=== PATIENT | female | born 1980 | race American Indian/Alaskan Native ===

== ENCOUNTER 2020-12-19 03:46 | Inpatient (IN) | payer OTHER ==
[2020-12-19 05:17] LABS: Basophils % (Auto) 0.3 % (0.0-1.8); Eosinophils # (Auto) 0.2 K/mm3 (0.0-0.4); Hematocrit 41.8 % (30.3-42.9); Lymphocytes # (Auto) 2.2 K/mm3 (1.2-5.4); Lymphocytes % (Auto) 17.1 % (13.4-35.0); Mean Corpuscular HGB Conc 33 % (30-34); Mean Corpuscular Volume 90 fl (79-97); Monocytes # (Auto) 1.2 K/mm3 (0.0-0.8); Monocytes % (Auto) 9.2 % (0.0-7.3); Platelet Count 275 K/mm3 (140-440); Red Blood Count 4.67 M/mm3 (3.65-5.03); Red Cell Distribution Width 13.9 % (13.2-15.2)
[2020-12-19 05:34] LABS: Alanine Aminotransferase 43 units/L (7-56); Albumin 3.9 g/dL (3.9-5); Blood Urea Nitrogen 10 mg/dL (7-17); Calcium 8.9 mg/dL (8.4-10.2); Hemolysis Index 4
[2020-12-19 05:43] LABS: BUN/Creatinine Ratio 17
[2020-12-19 05:46] LABS: Chol/HDL Ratio 3.86 %; HDL Cholesterol 38 mg/dL (40-59); LDL Cholesterol,Direct 98 mg/dL (50-130)
--- NOTE | 2020-12-19 05:55 | XRay Report ---
CHEST 1 VIEW 5:48 AM INDICATION / CLINICAL INFORMATION: Difficulty breathing. COMPARISON: None available. FINDINGS: SUPPORT DEVICES: None. HEART / MEDIASTINUM: The heart size and pulmonary vasculature are normal. LUNGS / PLEURA: No significant pulmonary or pleural abnormality. No pneumothorax. ADDITIONAL FINDINGS: No significant additional findings. IMPRESSION: No acute findings. Signer Name: Oumar Martinez MD Signed: 12/19/2020 5:51 AM Workstation Name: [id number]
[2020-12-19 08:11] LABS: HCG Qualitative,Urine Negative (Negative)
[2020-12-19 08:26] LABS: Bacteria,Urine 1+ /HPF (Negative); Bilirubin,Urine NEG (Negative); Blood,Urine NEG (Negative); Color,Urine Yellow (Yellow); Mucus,Urine FEW /HPF; Urobilinogen,Urine < 2.0 mg/dL (<2.0)
[2020-12-19] MEDS ORDERED: ONDANSETRON 4 MG/2 ML INJ IV ONE (08:51)
[2020-12-19] MEDS ORDERED: SODIUM CHLORIDE 0.9% 250ML 250 ML IV ONE (08:51)
[2020-12-19] MEDS ORDERED: HEPARIN 10,000 UNIT/1 ML VIAL IV STA (08:52)
--- NOTE | 2020-12-19 08:53 | Emergency Department Report ---
ED General Adult HPI - General Chief complaint: Dyspnea/Respdistress Stated complaint: SOB/CHEST PAIN/HEART RACING PUI?: No Time Seen by Provider: 12/19/20 06:51 Source: patient, RN notes reviewed Mode of arrival: Ambulatory Limitations: Physical Limitation - History of Present Illness Initial comments: The patient was evaluated in the emergency department for symptoms described in the history of present illness. He/she was evaluated in the context of the global COVID-19 pandemic, which necessitated consideration that the patient might be at risk for infection with the virus that causes COVID-19. Institutional protocols and algorithms that pertain to the evaluation of patients at risk for COVID-19 are in a state of rapid change based on information released by regulatory bodies including the CDC and federal and state organizations. These policies and algorithms were followed during the patient's care in the emergency department. Please note that these policies, procedures and recommendations changed on a rapid basis. The patient is a 40-year-old female. She is not known to myself previously. She states that she is not . She appears to have a history of obesity, panic attacks, pulmonary embolism, IVC filter. Her pulmonary embolism was diagnosed approximately 10 years ago, associate with orthopedic surgery. She does not currently have systemic anticoagulation. Her primary care doctor is in [place]. She presents to the ER today with a complaint of basically painless shortness of breath. This has been going on for a few days. She denies headache, neck pain, chest pain, abdominal pain. She has lower extremity swelling. She states that she is not , and denies hematemesis, bright red blood per rectum. Denies loss of taste and smell. -: Gradual, days(s) Location: left, right, lower extremity Consistency: constant Improves with: rest Worsens with: movement - Related Data Home Medications Medication Instructions Recorded Confirmed Last Taken propranoloL [Inderal] 40 mg PO BID 12/19/20 12/19/20 Unknown Allergies Allergy/AdvReac Type Severity Reaction Status Date / Time sulfamethoxazole Allergy Itching Verified 12/19/20 04:19 [From Bactrim] trimethoprim [From Bactrim] Allergy Itching Verified 12/19/20 04:19 ED Review of Systems ROS: Stated complaint: SOB/CHEST PAIN/HEART RACING Other details as noted in HPI Constitutional: malaise, weakness. denies: fever Eyes: denies: eye discharge ENT: denies: congestion Respiratory: shortness of breath Cardiovascular: dyspnea on exertion, orthopnea. denies: chest pain Gastrointestinal: denies: hematemesis, melena, hematochezia Musculoskeletal: other (Lower extremity swelling) Neurological: weakness Psychiatric: anxiety Hematological/Lymphatic: denies: easy bleeding ED Past Medical Hx - Past Medical History Previous Medical History?: Yes Hx Headaches / Migraines: Yes Hx Psychiatric Treatment: Yes (Panic Attacks.) Additional medical history: Pulmonary Embolism - Surgical History Past Surgical History?: Yes Additional Surgical History: Removal of [place] Filter. - Social History Smoking Status: Never Smoker - Medications Home Medications: Home Medications Medication Instructions Recorded Confirmed Last Taken Type propranoloL [Inderal] 40 mg PO BID 12/19/20 12/19/20 Unknown History ED Physical Exam - General Limitations: No Limitations General appearance: alert, anxious, obese - Head Head exam: Present: atraumatic, normocephalic - Eye Eye exam: Present: normal appearance, EOMI. Absent: nystagmus - ENT ENT exam: Present: normal exam, normal orophraynx, mucous membranes moist, normal external ear exam - Neck Neck exam: Present: normal inspection, full ROM. Absent: tenderness, meningismus - Respiratory Respiratory exam: Present: decreased breath sounds. Absent: respiratory distress, wheezes, rales, rhonchi, stridor - Cardiovascular Cardiovascular Exam: Present: normal rhythm, tachycardia, normal heart sounds. Absent: bradycardia, irregular rhythm, systolic murmur, diastolic murmur, rubs, gallop - GI/Abdominal GI/Abdominal exam: Present: soft. Absent: distended, tenderness, guarding, rebound, rigid, pulsatile mass - Extremities Exam Extremities exam: Present: normal inspection, full ROM, pedal edema, other (Bilateral lower extremities are swollen, right greater than left. Muscular compartments are firm, but nontender. 2+ pulses noted in the bilateral upper and lower extremities). Absent: calf tenderness - Back Exam Back exam: Present: normal inspection, full ROM. Absent: tenderness, CVA tenderness (R), CVA tenderness (L), paraspinal tenderness, vertebral tenderness - Neurological Exam Neurological exam: Present: alert, other (No facial droop. Tongue midline. Extraocular movements intact bilaterally. Facial sensation intact to light touch in V1, V2, V3 distribution bilaterally. 5 and a 5 strength in 4 extremities. Sensation intact to light touch in 4 extremities.) - Psychiatric Psychiatric exam: Present: anxious - Skin Skin exam: Present: warm, dry, intact, normal color. Absent: rash ED Course Vital Signs 12/19/20 12/19/20 12/19/20 03:52 08:42 08:51 Temperature 98.5 F Pulse Rate 125 H 118 H Respiratory 24 16 18 Rate Blood Pressure 140/93 Blood Pressure 142/93 [Left] O2 Sat by Pulse 95 96 Oximetry 12/19/20 12/19/20 12/19/20 09:24 10:15 11:10 Temperature Pulse Rate 117 H 111 H 117 H Respiratory 18 18 18 Rate Blood Pressure Blood Pressure 122/87 122/65 137/97 [Left] O2 Sat by Pulse 97 98 99 Oximetry 12/19/20 11:35 Temperature Pulse Rate 113 H Respiratory 18 Rate Blood Pressure Blood Pressure 147/103 [Left] O2 Sat by Pulse 99 Oximetry - Reevaluation(s) Reevaluation #1: 12/19/20 09:28 Differential diagnosis, including but not limited to: Pulmonary embolism, pericardial effusion, right-sided heart failure, pulmonary hypertension, DVT Assessment and plan: 40-year-old female, who is morbidly obese, with shortness of breath and lower extremity swelling. She is fairly tachycardic, with an elevated troponin level. This is likely a type II troponin leak, I suspect either a pulmonary embolism, or pericardial effusion. She is not having chest pain, therefore, acute coronary syndrome, myocarditis, pericarditis are very unlikely. I performed a transthoracic bedside echocardiogram, which demonstrated a small sized pericardial effusion, grossly unremarkable LV ejection fraction, what appeared to be a dilated right ventricle. I have requested emergent CT angiogram of the chest to evaluate for probability of pulmonary embolism. We have also requested emergent lower extremity DVT study, and emergent formal echocardiogram to better assess patient's RV, and ejection fraction. Patient will be started on unfractionated heparin. Have discussed the case with cardiology, Royer Le, [facility] will see the patient shortly, and arrange for emergent echocardiogram. Have discussed this plan of care with the patient, who verbalized understanding. Please note that patient is obese and a very difficult IV stick, therefore, heparin drip has been started expediently, however, nursing team/clinical care team are still trying to obtain 20-gauge IV access, for adequate CT angiogram opacification. 12/19/20 11:50 Right lower extremity ultrasound consistent with lower extremity DVT. Patient was seen by the ultrasound-guided IV nurse, and had an adequately placed 20-gauge IV in the right upper extremity. In addition, she has other peripheral IV access, for fluids, and for heparinization. The ct scan technologist has evaluated this IV, and while it does not show signs of infiltration, leaking, and pulls back easily, the ct scan technologist advises that this line is unlikely to be able to withstand pressure contrast injection for angiogram. Patient remains hemodynamically stable We will place a page for vascular surgery to follow in consultation. We have contacted critical care physician on-call, Dr. Clyde Bernal, who is going to follow in consultation, we have discussed the patient's history, physical, current laboratory studies, physical exam findings, and pertinent imaging studies. Hospital physician is paged to arrange admission. Patient is updated on plan of care. 12/19/20 11:57 Hospital physician, Dr. Flores, to admit to the medical service. 12/19/20 13:28 We are able to obtain CT angiogram of the chest. It has demonstrated a saddle pulmonary embolism. We anticipated a pulmonary embolism with a large clot. The vascular surgeon on-call, Dr. Dada Guillory, was paged multiple times. We paged him at [phone], [phone], [phone], [phone], 1327. He has been paged overhead twice. He has not responded. We will escalate this to physician administration. Critical care and hospital physician updated 12/19/20 13:39 Dr. Dada Guillory has called back. I have discussed the patient's history, physical, pertinent laboratory studies and CT scan findings. I have requested emergent vascular surgery consultation to determine if patient is suitable/eligible for catheter directed lysis. He indicates he will evaluate the patient shortly. Hospital physician, critical care updated. Patient updated on findings. At the moment, she is hemodynamically stable, protecting her airway. Echocardiogram results are reviewed and appreciated. 12/19/20 15:02 12/19/20 15:05 ED Medical Decision Making - Lab Data Result diagrams: 12/19/20 09:28 12/19/20 04:28 Vital Signs 12/19/20 12/19/20 12/19/20 03:52 08:42 09:24 Temperature 98.5 F Pulse Rate 125 H 117 H Respiratory 24 16 18 Rate Blood Pressure 140/93 Blood Pressure 122/87 [Left] O2 Sat by Pulse 95 97 Oximetry Lab Results 12/19/20 12/19/20 12/19/20 Range/Units 04:28 04:28 Unknown WBC 12.7 H (4.5-11.0) K/mm3 RBC 4.67 (3.65-5.03) M/mm3 Hgb 14.0 (10.1-14.3) gm/dl Hct 41.8 (30.3-42.9) % MCV 90 (79-97) fl MCH 30 (28-32) pg MCHC 33 (30-34) % RDW 13.9 (13.2-15.2) % Plt Count 275 (140-440) K/mm3 Lymph % (Auto) 17.1 (13.4-35.0) % [place] % (Auto) 9.2 H (0.0-7.3) % Eos % (Auto) 2.0 (0.0-4.3) % Baso % (Auto) 0.3 (0.0-1.8) % Lymph # (Auto) 2.2 (1.2-5.4) K/mm3 [place] # (Auto) 1.2 H (0.0-0.8) K/mm3 Eos # (Auto) 0.2 (0.0-0.4) K/mm3 Baso # (Auto) 0.0 (0.0-0.1) K/mm3 Seg Neutrophils % 71.4 H (40.0-70.0) % Seg Neutrophils # 9.1 H (1.8-7.7) K/mm3 Sodium 139 (137-145) mmol/L Potassium 4.2 (3.6-5.0) mmol/L Chloride 107.9 H (98-107) mmol/L Carbon Dioxide 24 (22-30) mmol/L Anion Gap 11 mmol/L BUN 10 (7-17) mg/dL Creatinine 0.6 (0.6-1.2) mg/dL Estimated GFR > 60 ml/min BUN/Creatinine Ratio 17 % Glucose 119 H (65-100) mg/dL Calcium 8.9 (8.4-10.2) mg/dL Total Bilirubin 0.20 (0.1-1.2) mg/dL AST 29 (5-40) units/L ALT 43 (7-56) units/L Alkaline Phosphatase 71 (35-129) units/L Troponin T 0.053 H (0.00-0.029) ng/mL Total Protein 6.7 (6.3-8.2) g/dL Albumin 3.9 (3.9-5) g/dL Albumin/Globulin Ratio 1.4 % Triglycerides 155 H (2-149) mg/dL Cholesterol 147 (50-199) mg/dL LDL Cholesterol Direct 98 (50-130) mg/dL HDL Cholesterol 38 L (40-59) mg/dL Cholesterol/HDL Ratio 3.86 % Urine Color Yellow (Yellow) Urine Turbidity Slightly-cloudy (Clear) Urine pH 5.0 (5.0-7.0) Ur Specific [place] 1.016 (1.003-1.030) Urine Protein 100 mg/dl (Negative) mg/dL Urine Glucose (UA) Neg (Negative) mg/dL Urine Ketones Neg (Negative) mg/dL Urine Blood Neg (Negative) Urine Nitrite Neg (Negative) Ur Reducing Substances Not Reportable Urine Bilirubin Neg (Negative) Urine Ictotest Not Reportable Urine Urobilinogen < 2.0 (<2.0) mg/dL Ur Leukocyte Esterase Tr (Negative) Urine WBC (Auto) 4.0 (0.0-6.0) /HPF Urine RBC (Auto) 2.0 (0.0-6.0) /HPF U Epithel Cells (Auto) 3.0 (0-13.0) /HPF Urine Bacteria (Auto) 1+ (Negative) /HPF Urine Mucus Few /HPF Urine HCG, Qual Negative (Negative) - EKG Data -: EKG Interpreted by Sd EKG shows normal: sinus rhythm Rate: tachycardia - EKG Data When compared to previous EKG there are: previous EKG unavailable 12/19/20 09:31 Sinus rhythm, tachycardia, 125 bpm. Normal axis, normal intervals. There is low voltage. The EKG is abnormal. The EKG is not a STEMI. - Radiology Data Radiology results: pending, report reviewed, image reviewed CHEST 1 VIEW 5:48 AM INDICATION / CLINICAL INFORMATION: Difficulty breathing. COMPARISON: None available. FINDINGS: SUPPORT DEVICES: None. HEART / MEDIASTINUM: The heart size and pulmonary vasculature are normal. LUNGS / PLEURA: No significant pulmonary or pleural abnormality. No pneumothorax. ADDITIONAL FINDINGS: No significant additional findings. IMPRESSION: No acute findings. Signer Name: Oumar Martinez MD Signed: 12/19/2020 4:51 AM Workstation Name: [id number] [id number] DOPPLER LOWER EXTREMITY VEINS, BILATERAL INDICATION / CLINICAL INFORMATION: Bilateral lower extremities swelling. TECHNIQUE: Duplex doppler imaging was performed through the veins of both lower extremities using venous compression and other maneuvers. COMPARISON: None available. FINDINGS: RIGHT COMMON FEMORAL VEIN: Negative. RIGHT FEMORAL VEIN: Negative. RIGHT POPLITEAL VEIN: Hypoechoic material in the popliteal vein with lack of compressibility RIGHT CALF VEINS: Hyperechoic material with lack of compressibility in the infrapopliteal veins LEFT COMMON FEMORAL VEIN: Negative. LEFT FEMORAL VEIN: Negative. LEFT POPLITEAL VEIN: Negative. LEFT CALF VEINS: Negative. ADDITIONAL FINDINGS: None. IMPRESSION: 1. Acute deep venous thrombosis right lower extremity 2. No sonographic evidence for DVT in left lower extremity. Signer Name: Ethan Bravo MD Signed: 12/19/2020 10:56 AM Workstation Name: [id number] CTA CHEST WITH CONTRAST INDICATION : Tachycardia, shortness of breath. TECHNIQUE: Axial imaging performed through the chest, with contrast bolus timing set to maximize opacification of the pulmonary arteries. Sagittal and coronal reformatted images. 3-plane MIP reformatted images were obtained. All CT scans at this location are performed using CT dose reduction for ALARA by means of a utomated exposure control. 100 mL of intravenous contrast administered. COMPARISON: None FINDINGS: Bolus: Contrast bolus timing is adequate. PTE: A large saddle pulmonary embolus is identified extending to both lower lobes, right middle lobe and right upper lobe. Mediastinum: There is evidence for right heart strain with dilatation of the right ventricle. The aorta is normal. No pathologic mediastinal adenopathy. Lungs: Lungs are clear. Bones: Degenerative changes in the spine with nothing acute. Upper abdomen: Limited imaging of the upper abdomen shows nothing acute. IMPRESSION: Large saddle pulmonary embolus with evidence of right heart strain. ======= CRITICAL RESULT: Time of Discovery (SERVICE CREW SUPERVISOR/CDT): 1224 hours Time of Communication (SERVICE CREW SUPERVISOR/CDT): 1226 hours Licensed Practitioner Receiving Report: João Camp Read-Back Performed: Yes. Critical Care Time: Yes Critical care time in (mins) excluding proc time.: 120 Critical care attestation.: If time is entered above; I have spent that time in minutes in the direct care of this critically ill patient, excluding procedure time. ED Disposition Clinical Impression: Shortness of breath, Swelling of lower extremity, Elevated troponin, Acute saddle pulmonary embolism, Right heart failure Obesity Qualifiers: Obesity classification: unspecified obesity classification Serious obesity comorbidity presence: unspecified whether serious comorbidity present Acute deep vein thrombosis (DVT) Qualifiers: Affected thrombotic vein of extremity: unspecified vein of extremity Laterality: right Disposition: DC-[id number] OP ADMIT IP TO THIS HOSP Is pt being admited?: Yes Does the pt Need Aspirin: No Condition: Critical
[2020-12-19] MEDS ORDERED: HEPARIN/ 0.45% NACL DRIP 25,000 UNIT/500 ML BAG IV SCH (09:00)
[2020-12-19] MEDS ORDERED: HEPARIN 10,000 UNITS/10 ML VIAL IV NR (09:00)
[2020-12-19 10:38] LABS: Hematocrit 42.4 % (30.3-42.9); Hemoglobin 14.1 gm/dl (10.1-14.3)
[2020-12-19 10:54] LABS: INR 1.13 (0.87-1.13)
[2020-12-19 11:07] LABS: Partial Thromboplastin Time 166.9 Sec. (24.2-36.6)
--- NOTE | 2020-12-19 11:29 | Consultation ---
History of Present Illness Consult date: 12/19/20 Consult reason: elevated troponin History of present illness: Patient is a 40-year old morbidly obese woman with history of pulmonary embolism following a fibula fracture 12 years ago. She is no longer on oral anticoagulation. She presents to the emergency department with shortness of breath and chest pain, currently undergoing PE protocol. She has no prior cardiac history. A chest x-ray done is negative and her ECG is sinus tachycardia, otherwise benign. Past History Past Medical History: pulmonary embolism, other (obese) Medications and Allergies Allergies Allergy/AdvReac Type Severity Reaction Status Date / Time sulfamethoxazole Allergy Itching Verified 12/19/20 04:19 [From Bactrim] trimethoprim [From Bactrim] Allergy Itching Verified 12/19/20 04:19 Home Medications Medication Instructions Recorded Confirmed Last Taken Type propranoloL [Inderal] 40 mg PO BID 12/19/20 12/19/20 Unknown History Active Meds: Active Medications Heparin Sodium/Sodium Chloride (Heparin/ 0.45% Nacl-25,000 Unit/500 Ml) 25,000 unit in 500 mls @ 30 mls/hr IV TITR JACK; Protocol Last Admin: 12/19/20 09:13 Dose: 1,500 units/hr, 30 mls/hr Documented by: Review of Systems Cardiovascular: dyspnea on exertion Physical Examination Vital Signs Temp Pulse Resp BP Pulse Ox 98.5 F 125 H 24 140/93 95 12/19/20 03:52 12/19/20 03:52 12/19/20 03:52 12/19/20 03:52 12/19/20 03:52 General appearance: no acute distress, obese HEENT: Positive: PERRL Cardiac: Positive: Tachycardia Lungs: Positive: Decreased Breath Sounds Neuro: Positive: Grossly Intact Extremities: Absent: edema Results 12/19/20 09:28 12/19/20 04:28 Cardiac Enzymes 12/19/20 Range/Units 04:28 AST 29 (5-40) units/L Coagulation 12/19/20 Range/Units 09:28 PT 14.4 (12.2-14.9) Sec. INR 1.13 (0.87-1.13) APTT 166.9 H* (24.2-36.6) Sec. Lipids 12/19/20 Range/Units 04:28 Triglycerides 155 H (2-149) mg/dL Cholesterol 147 (50-199) mg/dL HDL Cholesterol 38 L (40-59) mg/dL Cholesterol/HDL Ratio 3.86 % CBC 12/19/20 12/19/20 Range/Units 04:28 09:28 WBC 12.7 H (4.5-11.0) K/mm3 RBC 4.67 (3.65-5.03) M/mm3 Hgb 14.0 14.1 (10.1-14.3) gm/dl Hct 41.8 42.4 (30.3-42.9) % Plt Count 275 246 (140-440) K/mm3 Lymph # (Auto) 2.2 (1.2-5.4) K/mm3 [place] # (Auto) 1.2 H (0.0-0.8) K/mm3 Eos # (Auto) 0.2 (0.0-0.4) K/mm3 Baso # (Auto) 0.0 (0.0-0.1) K/mm3 Comprehensive Metabolic Panel 12/19/20 Range/Units 04:28 Sodium 139 (137-145) mmol/L Potassium 4.2 (3.6-5.0) mmol/L Chloride 107.9 H (98-107) mmol/L Carbon Dioxide 24 (22-30) mmol/L BUN 10 (7-17) mg/dL Creatinine 0.6 (0.6-1.2) mg/dL Glucose 119 H (65-100) mg/dL Calcium 8.9 (8.4-10.2) mg/dL AST 29 (5-40) units/L ALT 43 (7-56) units/L Alkaline Phosphatase 71 (35-129) units/L Total Protein 6.7 (6.3-8.2) g/dL Albumin 3.9 (3.9-5) g/dL Assessment and Plan - Patient Problems (1) Shortness of breath Current Visit: Yes Status: Acute Plan to address problem: Currently undergoing PE protocol. Will get an echocardiogram for cardiac assessment.
--- NOTE | 2020-12-19 12:01 | Vascular Lab Report ---
DUPLEX DOPPLER LOWER EXTREMITY VEINS, BILATERAL INDICATION / CLINICAL INFORMATION: Bilateral lower extremities swelling. TECHNIQUE: Duplex doppler imaging was performed through the veins of both lower extremities using venous valente frank and other maneuvers. COMPARISON: None available. FINDINGS: RIGHT COMMON FEMORAL VEIN: Negative. RIGHT FEMORAL VEIN: Negative. RIGHT POPLITEAL VEIN: Hypoechoic material in the popliteal vein with lack of compressibility RIGHT CALF VEINS: Hyperechoic material with lack of compressibility in the infrapopliteal veins LEFT COMMON FEMORAL VEIN: Negative. LEFT FEMORAL VEIN: Negative. LEFT POPLITEAL VEIN: Negative. LEFT CALF VEINS: Negative. ADDITIONAL FINDINGS: None. IMPRESSION: 1. Acute deep venous thrombosis right lower extremity 2. No sonographic evidence for DVT in left lower extremity. Signer Name: Ethan Bravo MD Signed: 12/19/2020 11:56 AM Workstation Name: [id number]
--- NOTE | 2020-12-19 12:27 | History and Physical Report ---
History of Present Illness Chief complaint: My leg hurts and it is hard to breathe History of present illness: 40 YO Female with Obesity Hypoventilation Syndrome, HTN, MAKENZIE, Migraine MARINO, PE S/P IVC filter placement and removal not taking therapeutic anticoagulation presents to ED for evaluation. Patient reports "leg pain, and difficulty breathing". Patient states that she has experienced shortness of breath over t he past 4 days with persistently worsening symptoms over the same timeframe. Patient also reports right leg pain over the past 1 day with worsening symptoms over the same timeframe. Patient states that pain is 9/10, worsened with weight bearing, relieved relieved with non weightbearing. Patient transported to [facility] via private vehicle for further care and evaluation of the aforementioned symptoms. The patient was seen and evaluated in the emergency department. All laboratory studies reviewed. Patient underwent right lower extremity duplex and was found to have an acute DVT. Patient also found to have right ventricular strain pattern on EKG and as well as right ventricular enlargement on bedside echocardiogram. Patient symptoms suspected secondary to saddle pulmonary embolus. Pulmonary team consulted. Vascular surgery consulted in ED. Patient taken to operating room for surgical intervention. Patient denies fever, chills, chest pain, palpitations, productive cough, skin rash, recent ill contacts, or known exposure to COVID-19. No prior admission for review. All medication listed at time of admission has been reconciled. Past History Past Medical History: hypertension, migraines, pulmonary embolism, other (obese) Past Surgical History: Other (IVC filter placement and removal) Social history: single. denies: smoking, alcohol abuse, prescription drug abuse Family history: hypertension Medications and Allergies Allergies Allergy/AdvReac Type Severity Reaction Status Date / Time sulfamethoxazole Allergy Itching Verified 12/19/20 04:19 [From Bactrim] trimethoprim [From Bactrim] Allergy Itching Verified 12/19/20 04:19 Home Medications Medication Instructions Recorded Confirmed Last Taken Type propranoloL [Inderal] 40 mg PO BID 12/19/20 12/19/20 Unknown History Active Meds: Active Medications Heparin Sodium/Sodium Chloride (Heparin/ 0.45% Nacl-25,000 Unit/500 Ml) 25,000 unit in 500 mls @ 30 mls/hr IV TITR JACK; Protocol Last Admin: 12/19/20 09:13 Dose: 1,500 units/hr, 30 mls/hr Documented by: Review of Systems Constitutional: no weight loss, no weight gain Ears, nose, mouth and throat: no ear pain, no ear discharge, no tinnitis, no nose pain, no sinus pain Breasts: no change in shape, no swelling, no mass Cardiovascular: no chest pain, no rapid/irregular heart beat, no edema, no syncope Respiratory: shortness of breath, no cough with sputum, no excessive sputum, no congestion, no pleurisy Gastrointestinal: no nausea, no diarrhea, no constipation, no change in bowel habits Genitourinary Female: no pelvic pain, no flank pain, no dysuria, no urinary frequency, no urgency Rectal: no pain, no incontinence, no bleeding Musculoskeletal: other (Right leg pain), no neck pain, no shooting arm pain Integumentary: no rash, no pruritis, no wounds, no jaundice, no boils Neurological: no head injury, no paralysis, no tingling, no seizures, no syncope Psychiatric: anxiety, no sleep disturbances, no insomnia, no hypersomnia, no change in appetite, no suicidal ideation Endocrine: no cold intolerance, no heat intolerance, no excessive thirst, no nocturia, no excessive sweating Hematologic/Lymphatic: no easy bruising, no easy bleeding, no lymphadenopathy, no lymphedema Allergic/Immunologic: no wheezing, no persistent infections, no angioedema Exam - Constitutional Vitals: Temp Pulse Resp BP Pulse Ox 98.5 F 113 H 18 147/103 99 12/19/20 03:52 12/19/20 11:35 12/19/20 11:35 12/19/20 11:35 12/19/20 11:35 General appearance: Present: mild distress, obese - EENT Eyes: Present: PERRL ENT: hearing intact, clear oral mucosa - Neck Neck: Present: supple, normal ROM - Respiratory Respiratory effort: normal Respiratory: bilateral: diminished - Cardiovascular Heart Sounds: Present: S1 & S2. Absent: rub, click - Extremities Extremities: pulses symmetrical, No edema Peripheral Pulses: within normal limits - Abdominal General gastrointestinal: Present: soft, non-tender, non-distended, normal bowel sounds Female genitourinary: Present: normal - Integumentary Integumentary: Present: clear, warm, dry - Musculoskeletal Musculoskeletal: gait normal, strength equal bilaterally - Psychiatric Psychiatric: appropriate mood/affect, intact judgment & insight - Neurologic Neurologic: CNII-XII intact, moves all extremities HEART Score - HEART Score Troponin: Troponin T 0.053 ng/mL (0.00-0.029) H 12/19/20 04:28 Results - Labs CBC & Chem 7: 12/19/20 09:28 12/19/20 04:28 Labs: Abnormal lab results 12/19/20 12/19/20 12/19/20 Range/Units 04:28 04:28 09:28 WBC 12.7 H (4.5-11.0) K/mm3 Thomas % (Auto) 9.2 H (0.0-7.3) % Thomas # (Auto) 1.2 H (0.0-0.8) K/mm3 Seg Neutrophils % 71.4 H (40.0-70.0) % Seg Neutrophils # 9.1 H (1.8-7.7) K/mm3 APTT 166.9 H* (24.2-36.6) Sec. Chloride 107.9 H (98-107) mmol/L Glucose 119 H (65-100) mg/dL Troponin T 0.053 H (0.00-0.029) ng/mL NT-Pro-B Natriuret Pep (0-450) pg/mL Triglycerides 155 H (2-149) mg/dL HDL Cholesterol 38 L (40-59) mg/dL 12/19/20 Range/Units 09:28 WBC (4.5-11.0) K/mm3 Thomas % (Auto) (0.0-7.3) % Thomas # (Auto) (0.0-0.8) K/mm3 Seg Neutrophils % (40.0-70.0) % Seg Neutrophils # (1.8-7.7) K/mm3 APTT (24.2-36.6) Sec. Chloride (98-107) mmol/L Glucose (65-100) mg/dL Troponin T (0.00-0.029) ng/mL NT-Pro-B Natriuret Pep 1036 H (0-450) pg/mL Triglycerides (2-149) mg/dL HDL Cholesterol (40-59) mg/dL Assessment and Plan - Patient Problems (1) Acute saddle pulmonary embolism Current Visit: Yes Status: Acute Qualifiers: Acute cor pulmonale presence: with acute cor pulmonale Qualified Code(s): I26.02 - Saddle embolus of pulmonary artery with acute cor pulmonale Plan to address problem: Vascular surgery consulted, therapeutic anticoagulation, CT scan chest, surgical intervention as per vascular surgery team. (2) Right heart failure Current Visit: Yes Status: Acute Qualifiers: Heart failure chronicity: acute Qualified Code(s): I50.811 - Acute right heart failure Plan to address problem: Echocardiogram, supportive care, treat saddle pulmonary embolus, blood pressure control, supportive care. (3) Obesity hypoventilation syndrome Current Visit: Yes Status: Acute Plan to address problem: Balanced diet, increase physical activity at discharge, outpatient pulmonary follow-up for sleep study. Outpatient bariatric surgery consult. (4) Right leg DVT Current Visit: Yes Status: Acute Plan to address problem: Right lower extremity duplex, therapeutic anticoagulation, supportive care. (5) Hypertension Current Visit: Yes Status: Acute Qualifiers: Hypertension type: essential hypertension Qualified Code(s): I10 - Essential (primary) hypertension Plan to address problem: Monitor blood pressure every shift, continue medical management. (6) Generalized anxiety disorder Current Visit: Yes Status: Acute Plan to address problem: Benzodiazepine therapy as clinically indicated, supportive care. (7) Migraine headache Current Visit: Yes Status: Acute Plan to address problem: Supportive care, continue medical management (8) DVT prophylaxis Current Visit: Yes Status: Acute Plan to address problem: SCD to bilateral lower extremities while in bed, continue therapeutic anticoagulation.
[2020-12-19] MEDS ORDERED: ALBUTEROL 2.5 MG/3 ML NEBU IH PRN (12:50)
[2020-12-19] MEDS ORDERED: ONDANSETRON 4 MG/2 ML INJ IV PRN ×2 (12:50→14:28)
[2020-12-19] MEDS ORDERED: ACETAMINOPHEN 325 MG TAB PO PRN ×2 (12:50→14:28)
[2020-12-19] MEDS ORDERED: FAMOTIDINE 20 MG/2 ML INJ IV ONE (13:00)
--- NOTE | 2020-12-19 13:31 | Cat Scan Report ---
CTA CHEST WITH CONTRAST INDICATION : Tachycardia, shortness of breath. TECHNIQUE: Axial imaging performed through the chest, with contrast bolus timing set to maximize opa cification of the pulmonary arteries. Sagittal and coronal reformatted images. 3-plane MIP reformatte d images were obtained. All CT scans at this location are performed using CT dose reduction for ALAR A by means of automated exposure control. 100 mL of intravenous contrast administered. COMPARISON: None FINDINGS: Bolus: Contrast bolus timing is adequate. PTE: A large saddle pulmonary embolus is identified extending to both lower lobes, right middle lobe and right upper lobe. Mediastinum: There is evidence for right heart strain with dilatation of the right ventricle. The ao rta is normal. No pathologic mediastinal adenopathy. Lungs: Lungs are clear. Bones: Degenerative changes in the spine with nothing acute. Upper abdomen: Limited imaging of the upper abdomen shows nothing acute. IMPRESSION: Large saddle pulmonary embolus with evidence of right heart strain. CRITICAL RESULT: Time of Discovery (FLAVORING OIL FILTERER/CDT): 1224 hours Time of Communication (FLAVORING OIL FILTERER/CDT): 1226 hours Licensed Practitioner Receiving Report: João Camp Read-Back Performed: Yes. Signer Name: Jose Martin Azar Jr, MD Signed: 12/19/2020 1:26 PM Workstation Name: [id number]
[2020-12-19] MEDS ORDERED: MIDAZOLAM 2 MG/2 ML INJ ONE (14:13)
[2020-12-19] MEDS ORDERED: LIDOCAINE (1%) 10 MG/1 ML VIAL 20 ML MDV ONE (14:13)
[2020-12-19] MEDS ORDERED: fentaNYL 100 MCG/2 ML INJ ONE (14:13)
[2020-12-19] MEDS ORDERED: HEPARIN/NS 5000 UNIT/500ML 1,000 ML IR ONE (14:13)
[2020-12-19] MEDS ORDERED: LIDOCAINE (2%) 20 MG/1 ML VIAL 20 ML MDV INFILTRATI ONE (14:15)
[2020-12-19] MEDS ORDERED: WATER FOR INJ Sterile (PF) 10 ML ONE (14:15)
[2020-12-19] MEDS ORDERED: SODIUM CHLORIDE 0.9% 1000 ML 1,000 ML ONE ×2 (14:16→15:17)
[2020-12-19] MEDS ORDERED: MORPHINE 2 MG/1 ML INJ IV PRN (14:28)
[2020-12-19] MEDS ORDERED: SODIUM CHLORIDE 0.9% 1000 ML 1,000 ML IV SCH (14:30)
[2020-12-19] MEDS ORDERED: SODIUM CHLORIDE 0.9% 1000 ML 1,000 ML EKOSCLUMEN SCH (14:30)
[2020-12-19] MEDS ORDERED: SODIUM CHLORIDE 0.9% 1000 ML 1,000 ML SHEATH SCH ×2 (14:30)
--- NOTE | 2020-12-19 14:35 | Consultation ---
History of Present Illness Consult date: 12/19/20 Requesting physician: GINA MARTIN Reason for consult: pulmonary embolism History of present illness: 40 YO Female with Obesity Hypoventilation Syndrome, HTN, MAKENZIE, Migraine MARINO, PE S/P IVC filter placement and removal not taking therapeutic anticoagulation presents to ED for evaluation. Patient reports "leg pain, and difficulty breathing". Patient states that she has experienced shortness of breath over the past 4 days with persistently worsening symptoms over the same timeframe. Patient also reports right leg pain over the past 1 day with worsening symptoms over the same timeframe. Patient states that pain is 9/10, worsened with weight bearing, relieved relieved with non weightbearing. Patient transported to [facility] via private vehicle for further care and evaluation of the aforementioned symptoms. The patient was seen and evaluated in the emergency department. All laboratory studies reviewed. Patient underwent right lower extremity duplex and was found to have an acute DVT. Patient also found to have right ventricular strain pattern on EKG and as well as right ventricular enlargement on bedside echocardiogram. Patient symptoms suspected secondary to saddle pulmonary embolus. Pulmonary team consulted. Vascular surgery consulted in ED. Patient taken to operating room for surgical intervention. Past History Past Medical History: pulmonary embolism, other (obese) Medications and Allergies Allergies Allergy/AdvReac Type Severity Reaction Status Date / Time sulfamethoxazole Allergy Itching Verified 12/19/20 04:19 [From Bactrim] trimethoprim [From Bactrim] Allergy Itching Verified 12/19/20 04:19 Home Medications Medication Instructions Recorded Confirmed Last Taken Type propranoloL [Inderal] 40 mg PO BID 12/19/20 12/19/20 Unknown History Active Meds: Active Medications Acetaminophen (Acetaminophen 325 Mg Tab) 650 mg PO Q4H PRN PRN Reason: Pain MILD(1-3)/Fever >100.5/MARINO Acetaminophen (Acetaminophen 325 Mg Tab) 650 mg PO Q6H PRN PRN Reason: Pain, Mild (1-3) Hydrocodone Bitart/Acetaminophen (Hydrocodone/Acetaminophen 5-325 Mg Tab) 2 each PO Q6H PRN PRN Reason: Pain, Moderate (4-6) Albuterol (Albuterol 2.5 Mg/3 Ml Nebu) 2.5 mg IH Q4HRT PRN PRN Reason: Shortness Of Breath Famotidine (Famotidine 10 Mg Tab) 10 mg PO BID JACK Heparin Sodium/Sodium Chloride (Heparin/ 0.45% Nacl-25,000 Unit/500 Ml) 25,000 unit in 500 mls @ 30 mls/hr IV TITR JACK; Protocol Last Admin: 12/19/20 09:13 Dose: 1,500 units/hr, 30 mls/hr Documented by: Sodium Chloride (Nacl 0.9% 1000 Ml) 1,000 mls @ 30 mls/hr IV DIRECT JACK Alteplase, Recombinant 10 mg/ (Sodium Chloride) 250 mls @ 10 mls/hr EKOSDLUMEN DIRECT STA Stop: 12/20/20 15:25 Alteplase, Recombinant 10 mg/ (Sodium Chloride) 250 mls @ 10 mls/hr IV DIREC T STA Stop: 12/20/20 15:25 Sodium Chloride (Nacl 0.9% 1000 Ml) 1,000 mls @ 30 mls/hr SHEATH DIRECT JACK Sodium Chloride (Nacl 0.9% 1000 Ml) 1,000 mls @ 35 mls/hr EKOSCLUMEN DIRECT JACK Sodium Chloride (Nacl 0.9% 1000 Ml) 1,000 mls @ 30 mls/hr SHEATH DIRECT JACK Sodium Chloride (Nacl 0.9% 1000 Ml) 1,000 mls @ 35 mls/hr EKOSCLUMEN DIRECT JACK Heparin Sodium/Sodium Chloride (Heparin/ 0.45% Nacl-25,000 Unit/500 Ml) 25,000 unit in 500 mls @ 10 mls/hr SHEATH DIRECT JACK; Protocol Heparin Sodium/Sodium Chloride (Heparin/ 0.45% Nacl-25,000 Unit/500 Ml) 25,000 unit in 500 mls @ 10 mls/hr SHEATH DIRECT JACK; Protocol Morphine Sulfate (Morphine 4 Mg/1 Ml Inj) 4 mg IV Q4H PRN PRN Reason: Pain , Severe (7-10) Morphine Sulfate (Morphine 2 Mg/1 Ml Inj) 2 mg IV Q4H PRN PRN Reason: Pain, Moderate (4-6) Ondansetron HCl (Ondansetron 4 Mg/2 Ml Inj) 4 mg IV Q8H PRN PRN Reason: Nausea And Vomiting Ondansetron HCl (Ondansetron 4 Mg/2 Ml Inj) 4 mg IV Q8H PRN PRN Reason: Nausea And Vomiting Sodium Chloride (Sodium Chloride 0.9% 10 Ml Flush Syringe) 10 ml IV BID JACK Sodium Chloride (Sodium Chloride 0.9% 10 Ml Flush Syringe) 10 ml IV PRN PRN PRN Reason: LINE FLUSH Review of Systems All systems: negative (chest pain with shorntess of breath as in HPI) Physical Examination Vital signs: Vital Signs Temp Pulse Resp BP Pulse Ox 98.5 F 125 H 24 140/93 95 12/19/20 03:52 12/19/20 03:52 12/19/20 03:52 12/19/20 03:52 12/19/20 03:52 General appearance: Present: mild distress, obese - EENT Eyes: Present: PERRL ENT: hearing intact, clear oral mucosa - Neck Neck: Present: supple, normal ROM - Respiratory Respiratory effort: normal Respiratory: bilateral: diminished - Cardiovascular Heart Sounds: Present: S1 & S2. Absent: rub, click - Extremities Extremities: pulses symmetrical, No edema Peripheral Pulses: within normal limits - Abdominal General gastrointestinal: Present: soft, non-tender, non-distended, normal bowel sounds Female genitourinary: Present: normal - Integumentary Integumentary: Present: clear, warm, dry - Musculoskeletal Musculoskeletal: gait normal, strength equal bilaterally - Psychiatric Psychiatric: appropriate mood/affect, intact judgment & insight - Neurologic Neurologic: CNII-XII intact, moves all extremities Results - Laboratory Findings CBC and BMP: 12/20/20 07:25 12/20/20 02:20 PT/INR, D-dimer PT 14.4 Sec. (12.2-14.9) 12/19/20 09:28 INR 1.13 (0.87-1.13) 12/19/20 09:28 D-Dimer 4180.45 ng/mlDDU (0-234) H 12/19/20 13:16 Abnormal lab findings: Abnormal Labs 12/19/20 12/19/20 12/19/20 04:28 04:28 09:28 WBC 12.7 H [place] % (Auto) 9.2 H [place] # (Auto) 1.2 H Seg Neutrophils % 71.4 H Seg Neutrophils # 9.1 H APTT 166.9 H* D-Dimer Chloride 107.9 H Glucose 119 H Troponin T 0.053 H NT-Pro-B Natriuret Pep Triglycerides 155 H HDL Cholesterol 38 L 12/19/20 12/19/20 09:28 13:16 WBC [place] % (Auto) [place] # (Auto) Seg Neutrophils % Seg Neutrophils # APTT D-Dimer 4180.45 H Chloride Glucose Troponin T NT-Pro-B Natriuret Pep 1036 H Triglycerides HDL Cholesterol Assessment and Plan (1) Acute saddle pulmonary embolism Current Visit: Yes Status: Acute Qualifiers: Acute cor pulmonale presence: with acute cor pulmonale Qualified Code(s): I26.02 - Saddle embolus of pulmonary artery with acute cor pulmonale Plan to address problem: -Taken to wetlands conservation laborer for EKOS (2) Right heart failure Current Visit: Yes Status: Acute Qualifiers: Heart failure chronicity: acute Qualified Code(s): I50.811 - Acute right heart failure Plan to address problem: Echocardiogram, supportive care, treat saddle pulmonary embolus, blood pressure control, supportive care. (3) Obesity hypoventilation syndrome Current Visit: Yes Status: Acute Plan to address problem: Balanced diet, increase physical activity at discharge, outpatient pulmonary follow-up for sleep study. Outpatient bariatric surgery consult. (4) Right leg DVT Current Visit: Yes Status: Acute Plan to address problem: Right lower extremity duplex, therapeutic anticoagulation, supportive care. (5) Hypertension Current Visit: Yes Status: Acute Qualifiers: Hypertension type: essential hypertension Qualified Code(s): I10 - Essential (primary) hypertension Plan to address problem: Monitor blood pressure every shift, continue medical management. (6) Generalized anxiety disorder Current Visit: Yes Status: Acute Plan to address problem: Benzodiazepine therapy as clinically indicated, supportive care. (7) Migraine headache Current Visit: Yes Status: Acute Plan to address problem: Supportive care, continue medical management
[2020-12-19] MEDS ORDERED: ALTEPLASE 2 MG INJ ONE ×2 (14:38→14:40)
--- NOTE | 2020-12-19 14:40 | Consultation ---
History of Present Illness - Reason for Consult Consult date: 12/19/20 Bilateral Pulmonary Emboli Requesting physician: GINA MARTIN - History of Present Illness The patient is a 40-year-old female with a history of massive pulmonary embolus in 2008 after a right lower extremity fracture. At that time she was managed with Lovenox for 6 months as well as a inferior vena cava filter that was removed. Since that time she has done well until this past Tuesday when she began experiencing shortness of breath that progressively worsened over the next several days. On she began experiencing leg pain associated with swelling and her shortness of breath became so severe that she was unable to walk and became lightheaded with standing. She was transported by her son to the emergency department at 3 AM this morning for evaluation. Her work-up included a CTA of her chest which revealed bilateral pulmonary emboli with saddle pulmonary embolus as well as an echocardiogram which revealed evidence of right heart strain with an enlarged right atrium and right ventricle as well as mildly elevated pulmonary pressures. She is otherwise hemodynamically stable and is maintaining oxygen saturations. Other than the shortness of breath she does have complaints of some chest pain with exertion. She denies any recent surgery or trauma. She denies any history of hemoptysis, hematemesis, or hematochezia. She has no additional complaints at this time. Past History Past Medical History: pulmonary embolism (After right lower extremity fracture in 2008), other (Morbid obesity) Past Surgical History: Other (Repair of right lower extremity fracture, IVC filter placement, IVC filter retrieval) Medications and Allergies Allergies Allergy/AdvReac Type Severity Reaction Status Date / Time sulfamethoxazole Allergy Itching Verified 12/19/20 04:19 [From Bactrim] trimethoprim [From Bactrim] Allergy Itching Verified 12/19/20 04:19 Home Medications Medication Instructions Recorded Confirmed Last Taken Type propranoloL [Inderal] 40 mg PO BID 12/19/20 12/19/20 Unknown History Active Meds: Active Medications Acetaminophen (Acetaminophen 325 Mg Tab) 650 mg PO Q4H PRN PRN Reason: Pain MILD(1-3)/Fever >100.5/MARINO Acetaminophen (Acetaminophen 325 Mg Tab) 650 mg PO Q6H PRN PRN Reason: Pain, Mild (1-3) Hydrocodone Bitart/Acetaminophen (Hydrocodone/Acetaminophen 5-325 Mg Tab) 2 each PO Q6H PRN PRN Reason: Pain, Moderate (4-6) Albuterol (Albuterol 2.5 Mg/3 Ml Nebu) 2.5 mg IH Q4HRT PRN PRN Reason: Shortness Of Breath Famotidine (Famotidine 10 Mg Tab) 10 mg PO BID JACK Heparin Sodium/Sodium Chloride (Heparin/ 0.45% Nacl-25,000 Unit/500 Ml) 25,000 unit in 500 mls @ 30 mls/hr IV TITR JACK; Protocol Last Admin: 12/19/20 09:13 Dose: 1,500 units/hr, 30 mls/hr Documented by: Sodium Chloride (Nacl 0.9% 1000 Ml) 1,000 mls @ 30 mls/hr IV DIRECT JACK Alteplase, Recombinant 10 mg/ (Sodium Chloride) 250 mls @ 10 mls/hr EKOSDLUMEN DIRECT STA Stop: 12/20/20 15:25 Alteplase, Recombinant 10 mg/ (Sodium Chloride) 250 mls @ 10 mls/hr IV DIRECT STA Stop: 12/20/20 15:25 Sodium Chloride (Nacl 0.9% 1000 Ml) 1,000 mls @ 30 mls/hr SHEATH DIRECT JACK Sodium Chloride (Nacl 0.9% 1000 Ml) 1,000 mls @ 35 mls/hr EKOSCLUMEN DIRECT JACK Sodium Chloride (Nacl 0.9% 1000 Ml) 1,000 mls @ 30 mls/hr SHEATH DIRECT JACK Sodium Chloride (Nacl 0.9% 1000 Ml) 1,000 mls @ 35 mls/hr EKOSCLUMEN DIRECT JACK Heparin Sodium/Sodium Chloride (Heparin/ 0.45% Nacl-25,000 Unit/500 Ml) 25,000 unit in 500 mls @ 10 mls/hr SHEATH DIRECT JACK; Protocol Heparin Sodium/Sodium Chloride (Heparin/ 0.45% Nacl-25,000 Unit/500 Ml) 25,000 unit in 500 mls @ 10 mls/hr SHEATH DIRECT JACK; Protocol Morphine Sulfate (Morphine 4 Mg/1 Ml Inj) 4 mg IV Q4H PRN PRN Reason: Pain , Severe (7-10) Morphine Sulfate (Morphine 2 Mg/1 Ml Inj) 2 mg IV Q4H PRN PRN Reason: Pain, Moderate (4-6) Ondansetron HCl (Ondansetron 4 Mg/2 Ml Inj) 4 mg IV Q8H PRN PRN Reason: Nausea And Vomiting Ondansetron HCl (Ondansetron 4 Mg/2 Ml Inj) 4 mg IV Q8H PRN PRN Reason: Nausea And Vomiting Sodium Chloride (Sodium Chloride 0.9% 10 Ml Flush Syringe) 10 ml IV BID JACK Sodium Chloride (Sodium Chloride 0.9% 10 Ml Flush Syringe) 10 ml IV PRN PRN PRN Reason: LINE FLUSH Review of Systems All systems: negative Exam - Constitutional Vitals: Temp Pulse Resp BP Pulse Ox 98.5 F 113 H 18 147/103 99 12/19/20 03:52 12/19/20 11:35 12/19/20 11:35 12/19/20 11:35 12/19/20 11:35 General appearance: Present: no acute distress - Respiratory Respiratory effort: normal - Cardiovascular Heart rate: 115 Rhythm: other (Tachycardia) - Extremities Extremities: no ischemia (Dorsalis pedis and posterior tibial pulses are palpable bilaterally) Extremity abnormal: edema (Mild edema of right lower extremity) - Abdominal General gastrointestinal: Present: soft, non-tender, non-distended - Rectal Rectal Exam: deferred - Psychiatric Psychiatric: appropriate mood/affect, intact judgment & insight Results - Labs CBC & Chem 7: 12/19/20 09:28 12/19/20 04:28 Labs: Abnormal lab results 12/19/20 12/19/20 12/19/20 Range/Units 04:28 04:28 09:28 WBC 12.7 H (4.5-11.0) K/mm3 [place] % (Auto) 9.2 H (0.0-7.3) % [place] # (Auto) 1.2 H (0.0-0.8) K/mm3 Seg Neutrophils % 71.4 H (40.0-70.0) % Seg Neutrophils # 9.1 H (1.8-7.7) K/mm3 APTT 166.9 H* (24.2-36.6) Sec. D-Dimer (0-234) ng/mlDDU Chloride 107.9 H (98-107) mmol/L Glucose 119 H (65-100) mg/dL Troponin T 0.053 H (0.00-0.029) ng/mL NT-Pro-B Natriuret Pep (0-450) pg/mL Triglycerides 155 H (2-149) mg/dL HDL Cholesterol 38 L (40-59) mg/dL 12/19/20 12/19/20 Range/Units 09:28 13:16 WBC (4.5-11.0) K/mm3 Harper % (Auto) (0.0-7.3) % Harper # (Auto) (0.0-0.8) K/mm3 Seg Neutrophils % (40.0-70.0) % Seg Neutrophils # (1.8-7.7) K/mm3 APTT (24.2-36.6) Sec. D-Dimer 4180.45 H (0-234) ng/mlDDU Chloride (98-107) mmol/L Glucose (65-100) mg/dL Troponin T (0.00-0.029) ng/mL NT-Pro-B Natriuret Pep 1036 H (0-450) pg/mL Triglycerides (2-149) mg/dL HDL Cholesterol (40-59) mg/dL - Imaging and Cardiology Chest x-ray: image reviewed CT scan - chest: image reviewed Venous US: image reviewed Assessment and Plan The patient is a 40-year-old female with a history of shortness of breath who was diagnosed with a saddle pulmonary embolus and bilateral pulmonary emboli with evidence of right heart strain. She has no contraindications for thromboly sis. She was offered bilateral pulmonary artery thrombolysis and was given the risk, benefits, and alternative procedures and has consented to the procedure. She will return to the Utilities Manager tomorrow for removal of the catheters and at that time will likely have an IVC filter placed as she has residual thrombus in her popliteal vein. She has also expressed understanding of that procedure and has consented with the understanding that this will be removed within 3 months.
[2020-12-19] MEDS ORDERED: HEPARIN/ 0.45% NACL DRIP 25,000 UNIT/500 ML BAG SHEATH SCH ×2 (15:00)
[2020-12-19] MEDS ORDERED: ALTEPLASE 10 MG in SODIUM CHLORIDE 0.9% 250ML 250 ML IV STA (15:04)
[2020-12-19] MEDS ORDERED: ALTEPLASE 10 MG in SODIUM CHLORIDE 0.9% 250ML 250 ML EKOSDLUMEN STA (15:04)
[2020-12-19] MEDS: HEPARIN 10,000 UNITS/10 ML VIAL ONE ×2 (15:16→15:20)
[2020-12-19] MEDS ORDERED: HEPARIN/ 0.45% NACL DRIP 25,000 UNIT/500 ML BAG ONE (15:18)
[2020-12-19 15:42] LABS: Basophils % (Auto) 0.2 % (0.0-1.8); Eosinophils # (Auto) 0.1 K/mm3 (0.0-0.4); Eosinophils % (Auto) 1.1 % (0.0-4.3); Hematocrit 37.9 % (30.3-42.9); Hemoglobin 12.8 gm/dl (10.1-14.3); Lymphocytes # (Auto) 3.3 K/mm3 (1.2-5.4); Lymphocytes % (Auto) 26.3 % (13.4-35.0); Mean Corpuscular HGB Conc 34 % (30-34); Mean Corpuscular Volume 89 fl (79-97); Monocytes # (Auto) 1.1 K/mm3 (0.0-0.8); Monocytes % (Auto) 9.2 % (0.0-7.3); Platelet Count 230 K/mm3 (140-440); Red Blood Count 4.25 M/mm3 (3.65-5.03); Red Cell Distribution Width 13.7 % (13.2-15.2)
--- NOTE | 2020-12-19 15:45 | Operative Report ---
Operative Report Operative Report: Date of Procedure: 12/19/2020 Pre-operative Diagnosis: Bilateral Pulmonary Emboli with Evidence of Right Heart Strain Post-operative Diagnosis: Same Procedure(s): 1. Ultrasound-Guided Access Right Common Femoral Vein 2. Ultrasound-Guided Access Right Common Femoral Vein 3. Catheter Pulmonary Artery 4. Nonselective Pulmonary Angiogram 5. Thrombolysis of Left Pulmonary Artery with 106 x 12 cm EKOS Thrombolysis Catheter 6. Thrombolysis of Right Pulmonary Artery with 106 x 12 cm EKOS Thrombolysis Catheter 7. Radiologic Supervision with Interpretation 8. Monitored Moderate Sedation (Total Anesthesia Time: 50 Minutes) Surgeon: Dada Guillory M.D. Set Staff Fitter: None Anesthesia: Local/Monitored Moderate Sedation Total Anesthesia Time: 50 Minutes EBL: Minimal Counts: Correct Complications: None Condition: Stable Specimen: None Indication: The patient is a 40-year-old female with a history of pulmonary embolus approximately 12 years ago who presented with shortness of breath and was found to have bilateral pulmonary emboli with a saddle embolus and evidence of right heart strain on echocardiogram. She has no contraindications for thrombolysis so she was offered the procedure given the risk, benefits, and alternative procedures and consented to the procedure. Angiographic Findings: The diagnostic pulmonary angiogram revealed nonocclusive pulmonary and bilateral main pulmonary arteries with thrombus in the segmental arteries bilaterally. Each catheter was placed in the respective pulmonary artery with the proximal treatment zone in the main pulmonary artery in the distal treatment zone in a subsegmental branch. Description of Procedure: The patient was brought to the Facial Operator and laid in supine position. After a timeout was performed her right groin was prepped and draped in normal sterile fashion. Ultrasound was used to identify the right common femoral vein and c onfirm patency. Once patency was confirmed the overlying skin and soft tissue was anesthetized with lidocaine. An 11 blade was used to make 2 small stab incisions and then an 18-gauge access needle was used with ultrasound guidance to enter the right common femoral vein through the lower of the 2 stab incisions. A 0.038 short sheath J-wire was advanced into the vein and then a second venipuncture was made using an 18-gauge needle with ultrasound-guided access and a second 0.038 short sheath J-wire was advanced into the vein. 2 6 Citizen [place] sheaths were then placed by Seldinger technique. A JR4 catheter and 0.035 Bentson wire was then advanced to the more distal sheath and advanced through the inferior vena cava and into the right atrium. The catheter and wire were advanced through the right ventricle and into the main pulmonary artery. A diagnostic pulmonary angiogram was performed with the previously described findings. The catheter and wire were then advanced into the left pulmonary artery and the JR4 catheter was then removed. A 106 x 12 cm EKOS Thrombolysis Catheter was advanced over the wire by Seldinger technique and after removing the wire the ultrasound catheter was advanced. I then advanced a JR4 catheter and Bentson wire through the more proximal sheath and eventually into the right pulmonary artery. The catheter was removed and the 106 x 12 cm EKOS Thrombolysi s Catheter was advanced into the artery by Seldinger technique. The wire was removed and the ultrasound catheter was then inserted. Each drug port was primed with 4 mg of TPA and each coolant point was primed with 3000 units of heparin. Each 6 Citizen [place] sheath was then primed with 2000 units of heparin respectively and then the sheaths were secured in position with 0 silk sutures along with securing the thrombolysis catheters to the sheaths. The catheters and sheaths were then dressed with sterile dressings. The patient tolerated the procedure well. All sponge, needle, and instrument counts were correct. The patient was taken to the recovery area in stable condition.
[2020-12-19] MEDS: SODIUM CHLORIDE 0.9% 1000 ML 1,000 ML EKOSCLUMEN SCH ×2 (16:20→16:40)
[2020-12-19] MEDS: HYDROcodone/ACETAMINOPHEN 5-325 MG TAB PO PRN (18:09)
[2020-12-19] MEDS: MORPHINE 4 MG/1 ML INJ IV PRN (20:37)
[2020-12-19] MEDS: FAMOTIDINE 10 MG TAB PO SCH (22:50)
[2020-12-20 00:53] LABS: Basophils % (Auto) 0.3 % (0.0-1.8); Eosinophils # (Auto) 0.2 K/mm3 (0.0-0.4); Eosinophils % (Auto) 1.5 % (0.0-4.3); Hematocrit 38.4 % (30.3-42.9); Hemoglobin 13.1 gm/dl (10.1-14.3); Lymphocytes # (Auto) 2.4 K/mm3 (1.2-5.4); Lymphocytes % (Auto) 23.3 % (13.4-35.0); Mean Corpuscular HGB Conc 34 % (30-34); Mean Corpuscular Volume 91 fl (79-97); Monocytes # (Auto) 1.2 K/mm3 (0.0-0.8); Monocytes % (Auto) 11.3 % (0.0-7.3); Platelet Count 199 K/mm3 (140-440); Red Blood Count 4.23 M/mm3 (3.65-5.03)
[2020-12-20 03:06] LABS: Blood Urea Nitrogen 7 mg/dL (7-17); Calcium 8.5 mg/dL (8.4-10.2); Hemolysis Index 19
[2020-12-20 03:14] LABS: BUN/Creatinine Ratio 14
[2020-12-20] MEDS: MORPHINE 4 MG/1 ML INJ IV PRN (03:45)
[2020-12-20] MEDS: HYDROcodone/ACETAMINOPHEN 5-325 MG TAB PO PRN (06:00)
[2020-12-20 07:50] LABS: Basophils % (Auto) 0.3 % (0.0-1.8); Eosinophils # (Auto) 0.1 K/mm3 (0.0-0.4); Eosinophils % (Auto) 1.1 % (0.0-4.3); Hemoglobin 12.7 gm/dl (10.1-14.3); Lymphocytes # (Auto) 1.9 K/mm3 (1.2-5.4); Lymphocytes % (Auto) 15.9 % (13.4-35.0); Mean Corpuscular HGB Conc 34 % (30-34); Mean Corpuscular Volume 88 fl (79-97); Monocytes # (Auto) 1.3 K/mm3 (0.0-0.8); Monocytes % (Auto) 10.7 % (0.0-7.3); Platelet Count 207 K/mm3 (140-440); Red Cell Distribution Width 13.9 % (13.2-15.2)
[2020-12-20] MEDS ORDERED: HEPARIN/NS 5000 UNIT/500ML 1,000 ML IR ONE (09:41)
[2020-12-20] MEDS ORDERED: HEPARIN 10,000 UNITS/10 ML VIAL ONE (09:41)
[2020-12-20] MEDS ORDERED: MIDAZOLAM 2 MG/2 ML INJ ONE (09:41)
[2020-12-20] MEDS ORDERED: fentaNYL 100 MCG/2 ML INJ ONE (09:41)
[2020-12-20] MEDS ORDERED: LIDOCAINE (2%) 20 MG/1 ML VIAL 20 ML MDV INFILTRATI ONE (10:05)
--- NOTE | 2020-12-20 10:48 | Progress Note ---
Assessment and Plan Assessment and plan: Bilateral pulmonary emboli with evidence of right heart strain. Right heart failure Obesity hypoventilation syndrome Right lower extremity DVT Hypertension Generalized anxiety disorder History of migraine headaches 12/20/2020. Patient is s/p EKOS/thrombolysis of left and right pulmonary artery (12/19/2020) currently on heparin. Considerations for IVC filter placement per vascular surgery. Continue current treatment plan per vascular surgery and pulmonary. History Interval history: The patient is a 40-year-old female with a history of massive pulmonary embolus in 2008 after a right lower extremity fracture. At that time she was managed with Lovenox for 6 months as well as a inferior vena cava filter that was removed. Since that time she has done well until this past Tuesday when she began experiencing shortness of breath that progressively worsened over the next several days. On TEST ENGINE OPERATOR, she began experiencing leg pain associated with swelling and her shortness of breath became so severe that she was unable to walk and became lightheaded with standing. She was transported by her son to the emergency department at 3 AM this morning for evaluation. Her work-up included a CTA of her chest which revealed bilateral pulmonary emboli with saddle pulmonary embolus as well as an echocardiogram which revealed evidence of right heart strain with an enlarged right atrium and right ventricle as well as mildly elevated pulmonary pressures. The patient was seen by vascular surgery and underwent EKOS/thrombolysis of left and right pulmonary artery and currently on heparin. Hospitalist Physical - Constitutional Vitals: Temp Pulse Resp BP Pulse Ox 99.9 F H 93 H 23 113/68 100 12/20/20 07:00 12/20/20 06:00 12/20/20 06:00 12/19/20 21:00 12/20/20 07:55 General appearance: Present: mild distress, obese - EENT Eyes: Present: PERRL, EOM intact ENT: hearing intact, clear oral mucosa, dentition normal - Neck Neck: Present: supple, normal ROM - Respiratory Respiratory effort: normal Respiratory: bilateral: CTA - Cardiovascular Rhythm: regular Heart Sounds: Present: S1 & S2. Absent: gallop, rub - Extremities Extremities: no ischemia, No edema, Full ROM - Abdominal General gastrointestinal: soft, non-tender, non-distended, normal bowel sounds - Integumentary Integumentary: Present: clear, warm, dry - Neurologic Neurologic: CNII-XII intact, moves all extremities HEART Score - HEART Score Troponin: Troponin T 0.053 ng/mL (0.00-0.029) H 12/19/20 04:28 Results - Labs CBC & Chem 7: 12/20/20 07:25 12/20/20 02:20 Labs: Laboratory Last Values WBC 11.9 K/mm3 (4.5-11.0) H 12/20/20 07:25 RBC 4.20 M/mm3 (3.65-5.03) 12/20/20 07:25 Hgb 12.7 gm/dl (10.1-14.3) 12/20/20 07:25 Hct 37.0 % (30.3-42.9) 12/20/20 07:25 MCV 88 fl (79-97) 12/20/20 07:25 MCH 30 pg (28-32) 12/20/20 07:25 MCHC 34 % (30-34) 12/20/20 07:25 RDW 13.9 % (13.2-15.2) 12/20/20 07:25 Plt Count 207 K/mm3 (140-440) 12/20/20 07:25 Lymph % (Auto) 15.9 % (13.4-35.0) 12/20/20 07:25 [place] % (Auto) 10.7 % (0.0-7.3) H 12/20/20 07:25 Eos % (Auto) 1.1 % (0.0-4.3) 12/20/20 07:25 Baso % (Auto) 0.3 % (0.0-1.8) 12/20/20 07:25 Lymph # (Auto) 1.9 K/mm3 (1.2-5.4) 12/20/20 07:25 [place] # (Auto) 1.3 K/mm3 (0.0-0.8) H 12/20/20 07:25 Eos # (Auto) 0.1 K/mm3 (0.0-0.4) 12/20/20 07:25 Baso # (Auto) 0.0 K/mm3 (0.0-0.1) 12/20/20 07:25 Seg Neutrophils % 72.0 % (40.0-70.0) H 12/20/20 07:25 Seg Neutrophils # 8.6 K/mm3 (1.8-7.7) H 12/20/20 07:25 PT 14.4 Sec. (12.2-14.9) 12/19/20 09:28 INR 1.13 (0.87-1.13) 12/19/20 09:28 APTT 166.9 Sec. (24.2-36.6) H* 12/19/20 09:28 Fibrinogen 360 mg/dl (211-480) 12/20/20 07:25 D-Dimer 4180.45 ng/mlDDU (0-234) H 12/19/20 13:16 Heparin Anti-Xa Level 0.31 U.I./ml (0.3-0.7) 12/20/20 07:25 Sodium 140 mmol/L (137-145) 12/20/20 02:20 Potassium 4.2 mmol/L (3.6-5.0) 12/20/20 02:20 Chloride 107.8 mmol/L (98-107) H 12/20/20 02:20 Carbon Dioxide 21 mmol/L (22-30) L 12/20/20 02:20 Anion Gap 15 mmol/L 12/20/20 02:20 BUN 7 mg/dL (7-17) 12/20/20 02:20 Creatinine 0.5 mg/dL (0.6-1.2) L 12/20/20 02:20 Estimated GFR > 60 ml/min 12/20/20 02:20 BUN/Creatinine Ratio 14 % 12/20/20 02:20 Glucose 91 mg/dL (65-100) 12/20/20 02:20 Calcium 8.5 mg/dL (8.4-10.2) 12/20/20 02:20 Magnesium 2.20 mg/dL (1.7-2.3) 12/19/20 09:28 Total Bilirubin 0.20 mg/dL (0.1-1.2) 12/19/20 04:28 AST 29 units/L (5-40) 12/19/20 04:28 ALT 43 units/L (7-56) 12/19/20 04:28 Alkaline Phosphatase 71 units/L (35-129) 12/19/20 04:28 Total Creatine Kinase 45 units/L (30-135) 12/19/20 09:28 Troponin T 0.053 ng/mL (0.00-0.029) H 12/19/20 04:28 NT-Pro-B Natriuret Pep 1036 pg/mL (0-450) H 12/19/20 09:28 Total Protein 6.7 g/dL (6.3-8.2) 12/19/20 04:28 Albumin 3.9 g/dL (3.9-5) 12/19/20 04:28 Albumin/Globulin Ratio 1.4 % 12/19/20 04:28 Triglycerides 155 mg/dL (2-149) H 12/19/20 04:28 Cholesterol 147 mg/dL (50-199) 12/19/20 04:28 LDL Cholesterol Direct 98 mg/dL (50-130) 12/19/20 04:28 HDL Cholesterol 38 mg/dL (40-59) L 12/19/20 04:28 Cholesterol/HDL Ratio 3.86 % 12/19/20 04:28 TSH 1.460 mlU/mL (0.270-4.200) 12/19/20 09:38 Free T4 1.12 ng/dL (0.76-1.46) 12/19/20 09:38 Urine Color Yellow (Yellow) 12/19/20 Unknown Urine Turbidity Slightly-cloudy (Clear) 12/19/20 Unknown Urine pH 5.0 (5.0-7.0) 12/19/20 Unknown Ur Specific [place] 1.016 (1.003-1.030) 12/19/20 Unknown Urine Protein 100 mg/dl mg/dL (Negative) 12/19/20 Unknown Urine Glucose (UA) Neg mg/dL (Negative) 12/19/20 Unknown Urine Ketones Neg mg/dL (Negative) 12/19/20 Unknown Urine Blood Neg (Negative) 12/19/20 Unknown Urine Nitrite Neg (Negative) 12/19/20 Unknown Ur Reducing Substances Not Reportable 12/19/20 Unknown Urine Bilirubin Neg (Negative) 12/19/20 Unknown Urine Ictotest Not Reportable 12/19/20 Unknown Urine Urobilinogen < 2.0 mg/dL (<2.0) 12/19/20 Unknown Ur Leukocyte Esterase Tr (Negative) 12/19/20 Unknown Urine WBC (Auto) 4.0 /HPF (0.0-6.0) 12/19/20 Unknown Urine RBC (Auto) 2.0 /HPF (0.0-6.0) 12/19/20 Unknown U Epithel Cells (Auto) 3.0 /HPF (0-13.0) 12/19/20 Unknown Urine Bacteria (Auto) 1+ /HPF (Negative) 12/19/20 Unknown Urine Mucus Few /HPF 12/19/20 Unknown Urine HCG, Qual Negative (Negative) 12/19/20 Unknown - Diagnostic Impressions Diagnostic Impressions: Echocardiogram 12/19/20 09:01 Transthoracic Echocardiogram Indication: Tachycardia; elevated troponin BP: 140/93 HR: 121 Conclusions *The right heart chambers are both moderate-severely dilated. *There is mild tricuspid regurgitation. *There is evidence of mild pulmonary hypertension with PASP of 32 mmHg. *Left ventricular chamber size and systolic function are normal. *The estimated ejection fraction is 55-60%. *There is trace of mitral regurgitation. Findings Left Ventricle: The left ventricular chamber size is normal. There is no left ventricular hypertrophy. Global left ventricular systolic function is normal. The estimated ejection fraction is 55-60%. Left Atrium: The left atrial chamber size is normal. Right Ventricle: The right ventricle is moderately dilated. The right ventricular global systolic function is moderately reduced. Right Atrium: The right atrium is moderate to severely dilated. Aortic Valve: The aortic valve leaflets are mildly thickened. There is no evidence of aortic regurgitation. There is no evidence of aortic stenosis. Mitral Valve: The mitral valve leaflets are mildly thickened. There is trace of mitral regurgitation. There is no evidence of mitral stenosis. Tricuspid Valve: There is mild tricuspid regurgitation. The right ventricular systolic pressure is calculated at 32 mmHg. There is evidence of mild pulmonary hypertension. Pulmonic Valve: There is trace pulmonic regurgitation. Pericardium: There is no pericardial effusion. Aorta: There is no dilatation of the aortic root. Venous: The inferior vena cava appears normal in size. Measurements Chambers 2D Name Value Normal Range IVSd (2D) 0.85 cm (0.6 - 1.1) LVPWd (2D) 0.91 cm (0.6 - 1.1) LVIDd (2D) 3.45 cm (3.7 - 5.6) LVIDs (2D) 2.75 cm (2 - 3.8) LV FS (2D) 20.36 % - EF Teichholz (2D) 42.61 % - Ao root diameter (2D) 2.92 cm (2 - 3.7) Volumes/Mass Name Value Normal Range LA ESV SP 4CH (A/L) 23.28 ml - LA ESV SP 2CH (A/L) 37.46 ml - LA ESV BP (A/L) 29.69 ml - LA ESV BP (A/L) index 12.48 ml/m2 - LA ESV SP 4CH (MOD) 21.31 ml - LA ESV SP 2CH (MOD) 36.23 ml - LA ESV BP (MOD) 27.72 ml - LA ESV BP (MOD) index 11.65 ml/m2 - LV EDV SP 4CH (MOD) 36.99 ml - Aortic Valve Name Value Normal Range AV Vmax 1.02 m/sec - AV VTI 15.08 cm - AV peak gradient 4.16 mmHg - AV mean gradient 2.42 mmHg - LVOT diameter 1.98 cm - LVOT Vmax 0.94 m/sec - LVOT VTI 13.21 cm - LVOT peak gradient 3.55 mmHg - LVOT mean gradient 1.78 mmHg - SV LVOT 40.8 ml - RIA (continuity Vmax) 2.85 cm2 - RIA (continuity VTI) 2.71 cm2 - Ascending Ao 2.74 cm - Mitral Valve Name Value Normal Range MV PHT 50.56 msec - MVA (PHT) 4.35 cm2 - Tricuspid Valve Name Value Normal Range TR Vmax 2.67 m/sec - TR peak gradient 28.51 mmHg - RAP 3 mmHg - RVSP 32 mmHg - IVC diameter 1.99 cm (1.2 - 2.3) Pulmonic Valve/Qp:Qs Name Value Normal Range PV Vmax 0.79 m/sec - PV peak gradient 2.48 mmHg - PV acceleration time 68.51 msec - [place]/IV: Voiding Method External Female Catheter IV Catheter Type [Right Hand] INT / Saline Lock Active Medications - Current Medications Current Medications: Generic Name Dose Route Start Last Admin Trade Name Freq PRN Reason Stop Dose Admin Acetaminophen 650 mg 12/19/20 12:50 Acetaminophen 325 Mg Tab PO Q4H PRN Pain MILD(1-3)/Fever >100.5/MARINO Hydrocodone Bitart/Acetaminophen 2 each 12/19/20 14:28 12/20/20 06:00 Hydrocodone/Acetaminophen 5-325 Mg Tab PO 2 each Q6H PRN Administration Pain, Moderate (4-6) Albuterol 2.5 mg 12/19/20 12:50 Albuterol 2.5 Mg/3 Ml Nebu IH Q4HRT PRN Shortness Of Breath Famotidine 10 mg 12/19/20 22:00 12/19/20 22:50 Famotidine 10 Mg Tab PO 10 mg BID JACK Administration Sodium Chloride 1,000 mls @ 30 mls/hr 12/19/20 14:30 12/20/20 10:37 Nacl 0.9% 1000 Ml IV 100 mls DIRECT JACK Administration Alteplase, Recombinant 10 mg/ 250 mls @ 10 mls/hr 12/19/20 15:04 12/19/20 16:20 Sodium Chloride EKOSDLUMEN 12/20/20 16:03 10 mls DIRECT STA Administration Alteplase, Recombinant 10 mg/ 250 mls @ 10 mls/hr 12/19/20 15:04 12/19/20 16:20 Sodium Chloride IV 12/20/20 16:03 10 mls DIRECT STA Administration Sodium Chloride 1,000 mls @ 30 mls/hr 12/19/20 14:30 Nacl 0.9% 1000 Ml SHEATH DIRECT JACK Sodium Chloride 1,000 mls @ 35 mls/hr 12/19/20 14:30 12/19/20 16:20 Nacl 0.9% 1000 Ml EKOSCLUMEN 35 mls DIRECT JACK Administration Sodium Chloride 1,000 mls @ 30 mls/hr 12/19/20 14:30 Nacl 0.9% 1000 Ml SHEATH DIRECT JACK Sodium Chloride 1,000 mls @ 35 mls/hr 12/19/20 14:30 12/19/20 16:20 Nacl 0.9% 1000 Ml EKOSCLUMEN 30 mls DIRECT JACK Administration Heparin Sodium/Sodium Chloride 25,000 unit in 500 mls @ 10 mls/hr 12/19/20 15:00 12/19/20 16:20 Heparin/ 0.45% Nacl-25,000 Unit/500 Ml SHEATH 10 mls DIRECT JACK Administration Protocol 500 UNITS/HR Heparin Sodium/Sodium Chloride 25,000 unit in 500 mls @ 10 mls/hr 12/19/20 15:00 12/19/20 16:20 Heparin/ 0.45% Nacl-25,000 Unit/500 Ml SHEATH 10 mls DIRECT JACK Administration Protocol 500 UNITS/HR Morphine Sulfate 4 mg 12/19/20 14:28 12/20/20 03:45 Morphine 4 Mg/1 Ml Inj IV 4 mg Q4H PRN Administration Pain , Severe (7-10) Morphine Sulfate 2 mg 12/19/20 14:28 12/19/20 16:50 Morphine 2 Mg/1 Ml Inj IV 2 mg Q4H PRN Administration Pain, Moderate (4-6) Ondansetron HCl 4 mg 12/19/20 12:50 Ondansetron 4 Mg/2 Ml Inj IV Q8H PRN Nausea And Vomiting Sodium Chloride 10 ml 12/19/20 22:00 12/19/20 22:50 Sodium Chloride 0.9% 10 Ml Flush Syringe IV 10 ml BID JACK Administration Sodium Chloride 10 ml 12/19/20 12:50 Sodium Chloride 0.9% 10 Ml Flush Syringe IV PRN PRN LINE FLUSH
[2020-12-20] MEDS ORDERED: APIXABAN 5 MG TAB ONE (10:50)
[2020-12-20] MEDS: FAMOTIDINE 10 MG TAB PO SCH ×2 (10:59→22:12)
--- NOTE | 2020-12-20 12:19 | Progress Note ---
Assessment and Plan Bilateral pulmonary emboli with evidence of right heart strain. Right heart failure Obesity hypoventilation syndrome Right lower extremity DVT Hypertension Generalized anxiety disorder History of migraine headaches Extreme obesity s/p EKOS, fro removal this afternoon -Supplemental oxygen to keep O2 sats>90% -Anticoagulation -Weight loss, life style modifications -Outpatient sleep studies -Chronic home medications as clinically indicated -Pain management- suspect her back pain is from lying in one spot. Her hemoglobin, and hemodynamics remain stable -will monitor overnight after EKOS is removed. If she remains stable plan to transfer to telemetry in am Subjective Date of service: 12/20/20 Interval history: Follow up fro acute saddle PE with right heart strain s/p EKOS Patient is s/p EKOS/thrombolysis of left and right pulmonary artery (12/19/2020) currently on heparin. Considerations for IVC filter placement per vascular surgery. Patient seen and examined. Vitals, labs, medications, chart reviewed. No acute overnight events reported. She denies any chest pain, no shortness of breath, no fevers or chills. Has some back pain Objective Vital Signs - 12hr 12/20/20 12/20/20 12/20/20 02:25 03:17 04:00 Temperature 97.9 F Pulse Rate 93 H Pulse Rate [ 96 H From Monitor] Respiratory 23 Rate O2 Sat by Pulse 98 Oximetry 12/20/20 12/20/20 12/20/20 06:00 07:00 07:55 Temperature 99.9 F H Pulse Rate Pulse Rate [ 93 H From Monitor] Respiratory 23 Rate O2 Sat by Pulse 100 100 Oximetry 12/20/20 12/20/20 10:00 12:13 Temperature 98.2 F Pulse Rate Pulse Rate [ 94 H From Monitor] Respiratory 23 Rate O2 Sat by Pulse 100 Oximetry Constitutional: no acute distress Eyes: non-icteric ENT: oropharynx moist Neck: supple, no lymphadenopathy, other (short neck, large neck circumfernece) Effort: normal Ascultation: Bilateral: diminished breath sounds Cardiovascular: regular rate and rhythm, other (S1,S2) Gastrointestinal: normoactive bowel sounds, soft, non-tender, non-distended Integumentary: normal, other (right femoral sheath) Extremities: no cyanosis, no edema, pulses normal, no ischemia or petechiae Neurologic: normal mental status, non-focal exam, CN II-XII normal Psychiatric: mood appropriate, affect normal CBC and BMP: 12/20/20 07:25 12/20/20 02:20 ABG, PT/INR, D-dimer: PT/INR, D-dimer PT 14.4 Sec. (12.2-14.9) 12/19/20 09:28 INR 1.13 (0.87-1.13) 12/19/20 09:28 D-Dimer 4180.45 ng/mlDDU (0-234) H 12/19/20 13:16 Abnormal lab findings: Abnormal Labs 12/19/20 12/19/20 12/19/20 04:28 04:28 09:28 WBC 12.7 H [place] % (Auto) 9.2 H [place] # (Auto) 1.2 H Seg Neutrophils % 71.4 H Seg Neutrophils # 9.1 H APTT 166.9 H* D-Dimer Chloride 107.9 H Carbon Dioxide Creatinine Glucose 119 H Troponin T 0.053 H NT-Pro-B Natriuret Pep Triglycerides 155 H HDL Cholesterol 38 L 12/19/20 12/19/20 12/19/20 09:28 13:16 15:13 WBC 12.4 H [place] % (Auto) 9.2 H [place] # (Auto) 1.1 H Seg Neutrophils % Seg Neutrophils # 7.8 H APTT D-Dimer 4180.45 H Chloride Carbon Dioxide Creatinine Glucose Troponin T NT-Pro-B Natriuret Pep 1036 H Triglycerides HDL Cholesterol 12/20/20 12/20/20 12/20/20 00:33 02:20 07:25 WBC 11.9 H [place] % (Auto) 11.3 H 10.7 H [place] # (Auto) 1.2 H 1.3 H Seg Neutrophils % 72.0 H Seg Neutrophils # 8.6 H APTT D-Dimer Chloride 107.8 H Carbon Dioxide 21 L Creatinine 0.5 L Glucose Troponin T NT-Pro-B Natriuret Pep Triglycerides HDL Cholesterol Chest x-ray: image reviewed Allied health notes reviewed: nursing
--- NOTE | 2020-12-20 16:44 | Progress Note ---
Assessment and Plan Acute PE s/p EKOS/thrombolysis Right heart strain Recommend: Continue current therapy Repeat echo next week Subjective Date of service: 12/20/20 Interval history: No acute events Objective Vital Signs Temp Pulse Pulse Pulse Resp BP Pulse Ox 12/20/20 16:00 98.6 F 12/20/20 14:00 91 H 23 100 12/20/20 12:13 98.2 F 12/20/20 10:00 94 H 23 100 12/20/20 07:55 100 12/20/20 07:00 99.9 F H 12/20/20 06:00 93 H 23 100 12/20/20 04:00 93 H 12/20/20 03:17 97.9 F 12/20/20 02:25 96 H 23 98 12/20/20 00:00 92 H 12/19/20 23:20 98.4 F 12/19/20 22:25 74 20 97 12/19/20 22:01 98 F 12/19/20 21:00 93 H 20 113/68 97 12/19/20 20:30 96 H 18 103/63 97 12/19/20 20:00 90 20 107/76 96 12/19/20 19:30 99 H 16 99/67 96 12/19/20 19:09 22 12/19/20 19:00 97 H 20 105/59 95 12/19/20 18:43 69 22 98 12/19/20 18:30 95 H 19 111/78 98 12/19/20 18:09 22 12/19/20 18:00 95 H 18 105/67 99 12/19/20 17:30 98 H 21 127/82 96 12/19/20 17:00 99 H 19 115/68 97 12/19/20 16:45 109 H 14 113/82 97 - Physical Examination HEENT: Positive: PERRL Cardiac: Positive: Reg Rate and Rhythm Lungs: Positive: Rhonchi Neuro: Positive: Grossly Intact Extremities: Absent: edema - Labs and Meds CBC 12/20/20 12/20/20 Range/Units 00:33 07:25 WBC 10.2 11.9 H (4.5-11.0) K/mm3 RBC 4.23 4.20 (3.65-5.03) M/mm3 Hgb 13.1 12.7 (10.1-14.3) gm/dl Hct 38.4 37.0 (30.3-42.9) % Plt Count 199 207 (140-440) K/mm3 Lymph # (Auto) 2.4 1.9 (1.2-5.4) K/mm3 [place] # (Auto) 1.2 H 1.3 H (0.0-0.8) K/mm3 Eos # (Auto) 0.2 0.1 (0.0-0.4) K/mm3 Baso # (Auto) 0.0 0.0 (0.0-0.1) K/mm3 Comprehensive Metabolic Panel 12/20/20 Range/Units 02:20 Sodium 140 (137-145) mmol/L Potassium 4.2 (3.6-5.0) mmol/L Chloride 107.8 H (98-107) mmol/L Carbon Dioxide 21 L (22-30) mmol/L BUN 7 (7-17) mg/dL Creatinine 0.5 L (0.6-1.2) mg/dL Glucose 91 (65-100) mg/dL Calcium 8.5 (8.4-10.2) mg/dL
--- NOTE | 2020-12-20 19:13 | Operative Report ---
Operative Report Operative Report: Date of procedure: 12/20/2020 Pre-operative diagnosis: Bilateral Pulmonary Emboli with Evidence of Right Heart Strain Status Post Thrombolysis Post -operative diagnosis: Same Procedure: 1. Removal of Left Pulmonary Artery EKOS Thrombolysis Catheter 2. Removal of Right Pulmonary Artery EKOS Thrombolysis Catheter 3. Follow-Up Right Pulmonary Artery Angiogram 4. Follow-Up Left Pulmonary Artery Angiogram 5. Inferior Venacavogram 6. Radiologic Supervision with Interpretation 7. Monitored Moderate Sedation (Total Anesthesia Time: 40 Minutes) Surgeon: Dada Guillory MD Mower Mechanic: None Anesthesia: Local/Monitored Moderate Sedation Total Anesthesia Time: 40 Minutes EBL: Minimal Counts: Correct Complications: None Condition: Stable Specimen: None Indication: The patient is a 40-year-old female who presented with bilateral pulmonary emboli with a saddle embolus and evidence of right heart strain on echocardiogram. She underwent bilateral pulmonary artery thrombolysis overnight and returns for removal of the thrombolysis catheters with follow-up angiogram. She was given the risk, benefits, and alternative procedures and consented to the procedure. Angiographic Findings: The follow-up right pulmonary artery angiogram revealed no residual thrombus noted within the main pulmonary arteries and no residual thrombus appreciated in the segmental or subsegmental branches. The follow-up left pulmonary artery angiogram revealed no residual thrombus appreciated within the main pulmonary artery and no residual thrombus noted within the segmental or subsegmental branches. Descritption of Procedure: The patient was brought to the Tool And Die Inspector and laid in supine position. After a timeout was performed her right groin and indwelling sheaths and catheters were prepped and draped in normal sterile fashion. 2% lidocaine was used to anesthetize the skin and soft tissue around the previously placed sheaths in the right common femoral vein and then the ultrasound catheter was removed from the EKOS catheter within the left pulmonary artery and a 0.035 Bentson wire was adva nced into the pulmonary artery. The EKOS catheter was then removed and a JR4 multipurpose catheter was then advanced into the proximal left main pulmonary artery and a diagnostic angiogram was performed with the previously described findings. The EKOS catheter and ultrasound wire were then removed from the right pulmonary artery and the Bentson wire was readvanced into the JR4 catheter and the catheter and wire were manipulated into the right main pulmonary artery and a diagnostic angiogram was performed with the previously described findings. The JR4 catheter was then removed and each sheath was removed and manual pressure was held to achieve hemostasis. Once hemostasis was achieved sterile dressings as well as pressure dressings were then applied to the groin and the patient was transported back to the ICU in stable condition.
[2020-12-20] MEDS: APIXABAN 5 MG TAB PO SCH (22:12)
[2020-12-21] MEDS: APIXABAN 5 MG TAB PO SCH ×2 (09:06→21:37)
[2020-12-21] MEDS: FAMOTIDINE 10 MG TAB PO SCH ×2 (09:07→21:37)
--- NOTE | 2020-12-21 09:49 | Progress Note ---
Assessment and Plan Assessment and plan: Bilateral pulmonary emboli with evidence of right heart strain. Right heart failure Obesity hypoventilation syndrome Right lower extremity DVT Hypertension Generalized anxiety disorder History of migraine headaches 12/20/2020. Patient is s/p EKOS/thrombolysis of left and right pulmonary artery (12/19/2020) currently on heparin. Considerations for IVC filter placement per vascular surgery. Continue current treatment plan per vascular surgery and pulmonary. 12/21/2020. Patient with removal of left and right pulmonary artery EKOS Thrombolysis Catheter. Patient started on Eliquis 10 mg every 12 hours. Transfer from ICU to telemetry. History Interval history: The patient is a 40-year-old female with a history of massive pulmonary embolus in 2008 after a right lower extremity fracture. At that time she was managed with Lovenox for 6 months as well as a inferior vena cava filter that was removed. Since that time she has done well until this past Tuesday when she began experiencing shortness of breath that progressively worsened over the next several days. On CARGO WORKER, she began experiencing leg pain associated with swelling and her shortness of breath became so severe that she was unable to walk and became lightheaded with standing. She was transported by her son to the emergency department at 3 AM this morning for evaluation. Her work-up included a CTA of her chest which revealed bilateral pulmonary emboli with saddle pulmonary embolus as well as an echocardiogram which revealed evidence of right heart strain with an enlarged right atrium and right ventricle as well as mildly elevated pulmonary pressures. The patient was seen by vascular surgery and underwent EKOS/thrombolysis of left and right pulmonary artery and currently on heparin. Hospitalist Physical - Constitutional Vitals: Temp Pulse Resp BP Pulse Ox 98.2 F 92 H 23 113/68 99 12/21/20 07:00 12/20/20 18:00 12/20/20 18:00 12/19/20 21:00 12/21/20 07:22 General appearance: Present: mild distress, obese - EENT Eyes: Present: PERRL, EOM intact ENT: hearing intact, clear oral mucosa, dentition normal - Neck Neck: Present: supple, normal ROM - Respiratory Respiratory effort: normal Respiratory: bilateral: CTA - Cardiovascular Rhythm: regular Heart Sounds: Present: S1 & S2. Absent: gallop, rub - Extremities Extremities: no ischemia, No edema, Full ROM - Abdominal General gastrointestinal: soft, non-tender, non-distended, normal bowel sounds - Integumentary Integumentary: Present: clear, warm, dry - Neurologic Neurologic: CNII-XII intact, moves all extremities HEART Score - HEART Score Troponin: Troponin T 0.053 ng/mL (0.00-0.029) H 12/19/20 04:28 Results - Labs CBC & Chem 7: 12/20/20 07:25 12/20/20 02:20 Labs: Laboratory Last Values WBC 11.9 K/mm3 (4.5-11.0) H 12/20/20 07:25 RBC 4.20 M/mm3 (3.65-5.03) 12/20/20 07:25 Hgb 12.7 gm/dl (10.1-14.3) 12/20/20 07:25 Hct 37.0 % (30.3-42.9) 12/20/20 07:25 MCV 88 fl (79-97) 12/20/20 07:25 MCH 30 pg (28-32) 12/20/20 07:25 MCHC 34 % (30-34) 12/20/20 07:25 RDW 13.9 % (13.2-15.2) 12/20/20 07:25 Plt Count 207 K/mm3 (140-440) 12/20/20 07:25 Lymph % (Auto) 15.9 % (13.4-35.0) 12/20/20 07:25 Greer % (Auto) 10.7 % (0.0-7.3) H 12/20/20 07:25 Eos % (Auto) 1.1 % (0.0-4.3) 12/20/20 07:25 Baso % (Auto) 0.3 % (0.0-1.8) 12/20/20 07:25 Lymph # (Auto) 1.9 K/mm3 (1.2-5.4) 12/20/20 07:25 Greer # (Auto) 1.3 K/mm3 (0.0-0.8) H 12/20/20 07:25 Eos # (Auto) 0.1 K/mm3 (0.0-0.4) 12/20/20 07:25 Baso # (Auto) 0.0 K/mm3 (0.0-0.1) 12/20/20 07:25 Seg Neutrophils % 72.0 % (40.0-70.0) H 12/20/20 07:25 Seg Neutrophils # 8.6 K/mm3 (1.8-7.7) H 12/20/20 07:25 PT 14.4 Sec. (12.2-14.9) 12/19/20 09:28 INR 1.13 (0.87-1.13) 12/19/20 09:28 APTT 166.9 Sec. (24.2-36.6) H* 12/19/20 09:28 Fibrinogen 360 mg/dl (211-480) 12/20/20 07:25 D-Dimer 4180.45 ng/mlDDU (0-234) H 12/19/20 13:16 Heparin Anti-Xa Level 0.31 U.I./ml (0.3-0.7) 12/20/20 07:25 Sodium 140 mmol/L (137-145) 12/20/20 02:20 Potassium 4.2 mmol/L (3.6-5.0) 12/20/20 02:20 Chloride 107.8 mmol/L (98-107) H 12/20/20 02:20 Carbon Dioxide 21 mmol/L (22-30) L 12/20/20 02:20 Anion Gap 15 mmol/L 12/20/20 02:20 BUN 7 mg/dL (7-17) 12/20/20 02:20 Creatinine 0.5 mg/dL (0.6-1.2) L 12/20/20 02:20 Estimated GFR > 60 ml/min 12/20/20 02:20 BUN/Creatinine Ratio 14 % 12/20/20 02:20 Glucose 91 mg/dL (65-100) 12/20/20 02:20 POC Glucose 95 mg/dL (70-105) 12/20/20 17:33 Calcium 8.5 mg/dL (8.4-10.2) 12/20/20 02:20 Magnesium 2.20 mg/dL (1.7-2.3) 12/19/20 09:28 Total Bilirubin 0.20 mg/dL (0.1-1.2) 12/19/20 04:28 AST 29 units/L (5-40) 12/19/20 04:28 ALT 43 units/L (7-56) 12/19/20 04:28 Alkaline Phosphatase 71 units/L (35-129) 12/19/20 04:28 Total Creatine Kinase 45 units/L (30-135) 12/19/20 09:28 Troponin T 0.053 ng/mL (0.00-0.029) H 12/19/20 04:28 NT-Pro-B Natriuret Pep 1036 pg/mL (0-450) H 12/19/20 09:28 Total Protein 6.7 g/dL (6.3-8.2) 12/19/20 04:28 Albumin 3.9 g/dL (3.9-5) 12/19/20 04:28 Albumin/Globulin Ratio 1.4 % 12/19/20 04:28 Triglycerides 155 mg/dL (2-149) H 12/19/20 04:28 Cholesterol 147 mg/dL (50-199) 12/19/20 04:28 LDL Cholesterol Direct 98 mg/dL (50-130) 12/19/20 04:28 HDL Cholesterol 38 mg/dL (40-59) L 12/19/20 04:28 Cholesterol/HDL Ratio 3.86 % 12/19/20 04:28 TSH 1.460 mlU/mL (0.270-4.200) 12/19/20 09:38 Free T4 1.12 ng/dL (0.76-1.46) 12/19/20 09:38 Urine Color Yellow (Yellow) 12/19/20 Unknown Urine Turbidity Slightly-cloudy (Clear) 12/19/20 Unknown Urine pH 5.0 (5.0-7.0) 12/19/20 Unknown Ur Specific [place] 1.016 (1.003-1.030) 12/19/20 Unknown Urine Protein 100 mg/dl mg/dL (Negative) 12/19/20 Unknown Urine Glucose (UA) Neg mg/dL (Negative) 12/19/20 Unknown Urine Ketones Neg mg/dL (Negative) 12/19/20 Unknown Urine Blood Neg (Negative) 12/19/20 Unknown Urine Nitrite Neg (Negative) 12/19/20 Unknown Ur Reducing Substances Not Reportable 12/19/20 Unknown Urine Bilirubin Neg (Negative) 12/19/20 Unknown Urine Ictotest Not Reportable 12/19/20 Unknown Urine Urobilinogen < 2.0 mg/dL (<2.0) 12/19/20 Unknown Ur Leukocyte Esterase Tr (Negative) 12/19/20 Unknown Urine WBC (Auto) 4.0 /HPF (0.0-6.0) 12/19/20 Unknown Urine RBC (Auto) 2.0 /HPF (0.0-6.0) 12/19/20 Unknown U Epithel Cells (Auto) 3.0 /HPF (0-13.0) 12/19/20 Unknown Urine Bacteria (Auto) 1+ /HPF (Negative) 12/19/20 Unknown Urine Mucus Few /HPF 12/19/20 Unknown Urine HCG, Qual Negative (Negative) 12/19/20 Unknown - Diagnostic Impressions Diagnostic Impressions: Echocardiogram 12/19/20 09:01 Transthoracic Echocardiogram Indication: Tachycardia; elevated troponin BP: 140/93 HR: 121 Conclusions *The right heart chambers are both moderate-severely dilated. *There is mild tricuspid regurgitation. *There is evidence of mild pulmonary hypertension with PASP of 32 mmHg. *Left ventricular chamber size and systolic function are normal. *The estimated ejection fraction is 55-60%. *There is trace of mitral regurgitation. Findings Left Ventricle: The left ventricular chamber size is normal. There is no left ventricular hypertrophy. Global left ventricular systolic function is normal. The estimated ejection fraction is 55-60%. Left Atrium: The left atrial chamber size is normal. Right Ventricle: The right ventricle is moderately dilated. The right ventricular global systolic function is moderately reduced. Right Atrium: The right atrium is moderate to severely dilated. Aortic Valve: The aortic valve leaflets are mildly thickened. There is no evidence of aortic regurgitation. There is no evidence of aortic stenosis. Mitral Valve: The mitral valve leaflets are mildly thickened. There is trace of mitral regurgitation. There is no evidence of mitral stenosis. Tricuspid Valve: There is mild tricuspid regurgitation. The right ventricular systolic pressure is calculated at 32 mmHg. There is evidence of mild pulmonary hypertension. Pulmonic Valve: There is trace pulmonic regurgitation. Pericardium: There is no pericardial effusion. Aorta: There is no dilatation of the aortic root. Venous: The inferior vena cava appears normal in size. Measurements Chambers 2D Name Value Normal Range IVSd (2D) 0.85 cm (0.6 - 1.1) LVPWd (2D) 0.91 cm (0.6 - 1.1) LVIDd (2D) 3.45 cm (3.7 - 5.6) LVIDs (2D) 2.75 cm (2 - 3.8) LV FS (2D) 20.36 % - EF Teichholz (2D) 42.61 % - Ao root diameter (2D) 2.92 cm (2 - 3.7) Volumes/Mass Name Value Normal Range LA ESV SP 4CH (A/L) 23.28 ml - LA ESV SP 2CH (A/L) 37.46 ml - LA ESV BP (A/L) 29.69 ml - LA ESV BP (A/L) index 12.48 ml/m2 - LA ESV SP 4CH (MOD) 21.31 ml - LA ESV SP 2CH (MOD) 36.23 ml - LA ESV BP (MOD) 27.72 ml - LA ESV BP (MOD) index 11.65 ml/m2 - LV EDV SP 4CH (MOD) 36.99 ml - Aortic Valve Name Value Normal Range AV Vmax 1.02 m/sec - AV VTI 15.08 cm - AV peak gradient 4.16 mmHg - AV mean gradient 2.42 mmHg - LVOT diameter 1.98 cm - LVOT Vmax 0.94 m/sec - LVOT VTI 13.21 cm - LVOT peak gradient 3.55 mmHg - LVOT mean gradient 1.78 mmHg - SV LVOT 40.8 ml - RIA (continuity Vmax) 2.85 cm2 - RIA (continuity VTI) 2.71 cm2 - Ascending Ao 2.74 cm - Mitral Valve Name Value Normal Range MV PHT 50.56 msec - MVA (PHT) 4.35 cm2 - Tricuspid Valve Name Value Normal Range TR Vmax 2.67 m/sec - TR peak gradient 28.51 mmHg - RAP 3 mmHg - RVSP 32 mmHg - IVC diameter 1.99 cm (1.2 - 2.3) Pulmonic Valve/Qp:Qs Name Value Normal Range PV Vmax 0.79 m/sec - PV peak gradient 2.48 mmHg - PV acceleration time 68.51 msec - Waddell/IV: Voiding Method External Female Catheter IV Catheter Type [Right Hand] INT / Saline Lock Active Medications - Current Medications Current Medications: Generic Name Dose Route Start Last Admin Trade Name Freq PRN Reason Stop Dose Admin Acetaminophen 650 mg 12/19/20 12:50 Acetaminophen 325 Mg Tab PO Q4H PRN Pain MILD(1-3)/Fever >100.5/MARINO Hydrocodone Bitart/Acetaminophen 2 each 12/19/20 14:28 12/20/20 06:00 Hydrocodone/Acetaminophen 5-325 Mg Tab PO 2 each Q6H PRN Administration Pain, Moderate (4-6) Albuterol 2.5 mg 12/19/20 12:50 Albuterol 2.5 Mg/3 Ml Nebu IH Q4HRT PRN Shortness Of Breath Apixaban 10 mg 12/20/20 22:00 12/21/20 09:06 Apixaban 5 Mg Tab PO 10 mg Q12HR JACK Administration Protocol Famotidine 10 mg 12/19/20 22:00 12/21/20 09:07 Famotidine 10 Mg Tab PO 10 mg BID JACK Administration Ondansetron HCl 4 mg 12/19/20 12:50 12/20/20 13:37 Ondansetron 4 Mg/2 Ml Inj IV 4 mg Q8H PRN Administration Nausea And Vomiting Sodium Chloride 10 ml 12/19/20 22:00 12/21/20 09:07 Sodium Chloride 0.9% 10 Ml Flush Syringe IV 10 ml BID JACK Administration Sodium Chloride 10 ml 12/19/20 12:50 Sodium Chloride 0.9% 10 Ml Flush Syringe IV PRN PRN LINE FLUSH
--- NOTE | 2020-12-21 10:36 | Progress Note ---
Assessment and Plan Bilateral pulmonary emboli with evidence of right heart strain. Right heart failure Obesity hypoventilation syndrome Right lower extremity DVT Hypertension Generalized anxiety disorder History of migraine headaches Extreme obesity s/p EKOS,removal Continue anticoagulation -Supplemental oxygen to keep O2 sats>90% -Weight loss, life style modifications -Outpatient sleep studies -Chronic home medications as clinically indicated -Pain management Discharge planning Subjective Date of service: 12/21/20 Interval history: Follow up fro acute saddle PE with right heart strain s/p EKOS Patient is s/p EKOS/thrombolysis of left and right pulmonary artery (12/19/2020) currently on heparin. Considerations for IVC filter placement per vascular surgery. Patient seen and examined. Vitals, labs, medications, chart reviewed. No acute overnight events reported. She denies any chest pain, no shortness of breath, no fevers or chills. Sitting up having breakfast Objective Vital Signs - 12hr 12/21/20 12/21/20 12/21/20 00:00 03:58 07:00 Temperature 98.3 F 98.8 F 98.2 F O2 Sat by Pulse Oximetry 12/21/20 07:22 Temperature O2 Sat by Pulse 99 Oximetry Constitutional: no acute distress, alert, other (obese) Eyes: non-icteric ENT: oropharynx moist Neck: supple, no lymphadenopathy, other (short neck, large neck circumfernece) Effort: normal Ascultation: Bilateral: diminished breath sounds Cardiovascular: regular rate and rhythm, other (S1,S2) Gastrointestinal: normoactive bowel sounds, soft, non-tender, non-distended Integumentary: normal, other Extremities: no cyanosis, no edema, pulses normal, no ischemia or petechiae Neurologic: normal mental status, non-focal exam, CN II-XII normal Psychiatric: mood appropriate, affect normal CBC and BMP: 12/20/20 07:25 12/20/20 02:20 ABG, PT/INR, D-dimer: PT/INR, D-dimer PT 14.4 Sec. (12.2-14.9) 12/19/20 09:28 INR 1.13 (0.87-1.13) 12/19/20 09:28 D-Dimer 4180.45 ng/mlDDU (0-234) H 12/19/20 13:16 Abnormal lab findings: Abnormal Labs 12/19/20 12/19/20 12/19/20 04:28 04:28 09:28 WBC 12.7 H [place] % (Auto) 9.2 H [place] # (Auto) 1.2 H Seg Neutrophils % 71.4 H Seg Neutrophils # 9.1 H APTT 166.9 H* D-Dimer Chloride 107.9 H Carbon Dioxide Creatinine Glucose 119 H Troponin T 0.053 H NT-Pro-B Natriuret Pep Triglycerides 155 H HDL Cholesterol 38 L 12/19/20 12/19/20 12/19/20 09:28 13:16 15:13 WBC 12.4 H [place] % (Auto) 9.2 H [place] # (Auto) 1.1 H Seg Neutrophils % Seg Neutrophils # 7.8 H APTT D-Dimer 4180.45 H Chloride Carbon Dioxide Creatinine Glucose Troponin T NT-Pro-B Natriuret Pep 1036 H Triglycerides HDL Cholesterol 12/20/20 12/20/20 12/20/20 00:33 02:20 07:25 WBC 11.9 H [place] % (Auto) 11.3 H 10.7 H [place] # (Auto) 1.2 H 1.3 H Seg Neutrophils % 72.0 H Seg Neutrophils # 8.6 H APTT D-Dimer Chloride 107.8 H Carbon Dioxide 21 L Creatinine 0.5 L Glucose Troponin T NT-Pro-B Natriuret Pep Triglycerides HDL Cholesterol Allied health notes reviewed: nursing
--- NOTE | 2020-12-21 12:32 | Progress Note ---
Assessment and Plan S/P bilateral pulmonary artery thrombolysis Doing well Continue Eliquis as directed fro a minimum of 6 months, Samples and discount cards have been provided Follow up in the office with me in 2 weeks after discharge Okay to be discharged from a surgical standpoint Subjective Date of service: 12/21/20 Interval history: Patient complaining of some right groin pain. States her breathing feels much better. No additional complaints. Objective - Constitutional Vitals: Vital Signs - 12hr 12/21/20 12/21/20 12/21/20 03:58 07:00 07:22 Temperature 98.8 F 98.2 F O2 Sat by Pulse 99 Oximetry General appearance: Present: no acute distress - Respiratory Respiratory effort: normal Extremities: pulses intact (pedal pulses palpable bilaterally), abnormal (right groin without hematoma) - Labs CBC & Chem 7: 12/20/20 07:25 12/20/20 02:20 Medications & Allergies - Medications Allergies/Adverse Reactions: Allergies sulfamethoxazole [From Bactrim] Allergy (Verified 12/19/20 04:19) Itching trimethoprim [From Bactrim] Allergy (Verified 12/19/20 04:19) Itching Home Medications: Home Medications Medication Instructions Recorded Confirmed Last Taken Type propranoloL [Inderal] 40 mg PO BID 12/19/20 12/19/20 Unknown History Active Medications: Generic Name Dose Route Start Last Admin Trade Name Freq PRN Reason Stop Dose Admin Acetaminophen 650 mg 12/19/20 12:50 Acetaminophen 325 Mg Tab PO Q4H PRN Pain MILD(1-3)/Fever >100.5/MARINO Hydrocodone Bitart/Acetaminophen 2 each 12/19/20 14:28 12/20/20 06:00 Hydrocodone/Acetaminophen 5-325 Mg Tab PO 2 each Q6H PRN Administration Pain, Moderate (4-6) Albuterol 2.5 mg 12/19/20 12:50 Albuterol 2.5 Mg/3 Ml Nebu IH Q4HRT PRN Shortness Of Breath Apixaban 10 mg 12/20/20 22:00 12/21/20 09:06 Apixaban 5 Mg Tab PO 10 mg Q12HR JACK Administration Protocol Famotidine 10 mg 12/19/20 22:00 12/21/20 09:07 Famotidine 10 Mg Tab PO 10 mg BID JACK Administration Ondansetron HCl 4 mg 12/19/20 12:50 12/20/20 13:37 Ondansetron 4 Mg/2 Ml Inj IV 4 mg Q8H PRN Administration Nausea And Vomiting Sodium Chloride 10 ml 12/19/20 22:00 12/21/20 09:07 Sodium Chloride 0.9% 10 Ml Flush Syringe IV 10 ml BID JACK Administration Sodium Chloride 10 ml 12/19/20 12:50 Sodium Chloride 0.9% 10 Ml Flush Syringe IV PRN PRN LINE FLUSH HEART Score - HEART Score Troponin: Troponin T 0.053 ng/mL (0.00-0.029) H 12/19/20 04:28
--- NOTE | 2020-12-21 15:05 | Progress Note ---
Assessment and Plan Acute bilateral PE s/p thrombolysis Right heart strain Recommend: Continue current therapy Repeat echo next week Subjective Date of service: 12/21/20 Interval history: No cardiac complaints Objective Vital Signs Temp Pulse Pulse Resp Pulse Ox 12/21/20 12:00 84 12/21/20 07:22 99 12/21/20 07:00 98.2 F 12/21/20 03:58 98.8 F 12/21/20 00:00 98.3 F 12/20/20 20:00 98.2 F 12/20/20 18:00 92 H 23 100 12/20/20 16:00 98.6 F - Physical Examination HEENT: Positive: PERRL Cardiac: Positive: Reg Rate and Rhythm Lungs: Positive: clear to auscultation Neuro: Positive: Grossly Intact Extremities: Absent: edema - Allied health notes Allied health notes reviewed: nursing
[2020-12-22 09:09] VITALS: BP 153/86
[2020-12-22] MEDS: FAMOTIDINE 10 MG TAB PO SCH (09:29)
[2020-12-22] MEDS: APIXABAN 5 MG TAB PO SCH (09:29)
--- NOTE | 2020-12-22 09:35 | Discharge Summary ---
Providers - Providers Date of Admission: 12/19/20 12:50 Date of discharge: 12/22/20 Attending physician: KLEBER POST 12/19/20 09:02 Consult to Physician [CONS] Urgent Comment: Consulting Provider: RACHAEL MCKNIGHT Physician Instructions: Reason For Exam: Acute tachycardia, elevated troponin, suspect pulm 12/19/20 11:42 Consult to Physician [CONS] Urgent Comment: Consulting Provider: HAI BANKS Physician Instructions: Reason For Exam: suspected submassive pe 12/19/20 11:49 Consult to Physician [CONS] Urgent Comment: Consulting Provider: EFREN MORTON Physician Instructions: Reason For Exam: dvt, suspected submassive pe Primary care physician: FOOD SERVICE SPECIALIST Hospitalization Reason for admission: PE Condition: Critical Hospital course: The patient is a 40-year-old female with a history of massive pulmonary embolus in 2008 after a right lower extremity fracture. At that time she was managed with Lovenox for 6 months as well as a inferior vena cava filter that was removed. Since that time she has done well until this past Tuesday when she began experiencing shortness of breath that progressively worsened over the next several days. On SHUTDOWN PLANNER, she began experiencing leg pain associated with swelling and her shortness of breath became so severe that she was unable to walk and became lightheaded with standing. She was transported by her son to the emergency department at 3 AM this morning for evaluation. Her work-up included a CTA of her chest which revealed bilateral pulmonary emboli with saddle pulmonary embolus as well as an echocardiogram which revealed evidence of right heart strain with an enlarged right atrium and right ventricle as well as mildly elevated pulmonary pressures. The patient was admitted with diagnosis of acute bilateral saddle PE, right heart strain/right heart failure, obesity hypoventilation syndrome, right lower extremity DVT, acute hypoxic respiratory failure and hypertension the patient was seen by vascular surgery and underwent EKOS/thrombolysis of left and right pulmonary artery and treated with heparin. Patient's remainder hospitalization was uneventful and vascular surgery recommended discharged with Eliquis. Eliquis 10 mg 1 p.o. twice daily x1 week then 5 mg p.o. twice daily for minimum of 6 months. Dedicated discharge time 35 minutes Disposition: - TO HOME OR SELFCARE Time spent for discharge: 35 - Discharge Diagnoses (1) Acute deep vein thrombosis (DVT) Status: Acute Qualifiers: Affected thrombotic vein of extremity: unspecified vein of extremity Laterality: right (2) Acute saddle pulmonary embolism Status: Acute Qualifiers: Acute cor pulmonale presence: with acute cor pulmonale Qualified Code(s): I26.02 - Saddle embolus of pulmonary artery with acute cor pulmonale (3) Elevated troponin Status: Acute (4) Hypertension Status: Acute Qualifiers: Hypertension type: essential hypertension Qualified Code(s): I10 - Essential (primary) hypertension (5) Obesity Status: Acute Qualifiers: Obesity classification: unspecified obesity classification Serious obesity comorbidity presence: unspecified whether serious comorbidity present (6) Obesity hypoventilation syndrome Status: Acute (7) Right heart failure Status: Acute Qualifiers: Heart failure chronicity: acute Qualified Code(s): I50.811 - Acute right heart failure (8) Right leg DVT Status: Acute (9) Acute respiratory failure with hypoxia Status: Acute Core Measure Documentation - Palliative Care Palliative Care/ Comfort Measures: Not Applicable - Core Measures Any of the following diagnoses?: none Exam - Constitutional Vitals: Temp Pulse Resp BP Pulse Ox 98.0 F 103 H 18 153/86 98 12/22/20 08:59 12/22/20 08:59 12/22/20 08:59 12/22/20 08:59 12/22/20 08:59 General appearance: Present: no acute distress, well-nourished - EENT Eyes: Present: PERRL ENT: hearing intact, clear oral mucosa - Neck Neck: Present: supple, normal ROM - Respiratory Respiratory effort: normal Respiratory: bilateral: CTA - Cardiovascular Heart Sounds: Present: S1 & S2. Absent: rub, click - Extremities Extremities: pulses symmetrical, No edema Peripheral Pulses: within normal limits - Abdominal General gastrointestinal: Present: soft, non-tender, non-distended, normal bowel sounds Female genitourinary: Present: normal - Integumentary Integumentary: Present: clear, warm, dry - Musculoskeletal Musculoskeletal: gait normal, strength equal bilaterally - Psychiatric Psychiatric: appropriate mood/affect, intact judgment & insight - Neurologic Neurologic: CNII-XII intact, moves all extremities Plan Activity: advance as tolerated Weight Bearing Status: Weight Bear as Tolerated Diet: regular Follow up with: RACHAEL MCKNIGHT MD [Staff Physician] - 7 Days PRIMARY CARE, [Primary Care Provider] - 3-5 Days ORJIOKE,NGOZIKA A, MD [Staff Physician] - 7 Days EFREN MORTON MD [Staff Physician] - 14 Days Prescriptions: Apixaban [Eliquis] 5 mg PO BID #60 tablet Apixaban [Eliquis starter pack] 5 mg PO BID #1 tab.ds.pk HYDROcodone/APAP 7.5-325 [[place] 7.5/325] 1 each PO Q6HR PRN #30 tablet PRN Reason: Pain
--- NOTE | 2020-12-22 11:13 | Progress Note ---
Assessment and Plan - Patient Problems (1) Shortness of breath Current Visit: Yes Status: Acute Plan to address problem: Patient presented with acute pulmonary embolism, associated with right ventricular strain. She is clinically improved after EKOS therapy and oral anticoagulation. Cardiac status is stable for discharge, patient understands that she needs lifelong oral anticoagulation, this was a second episode of venous thromboembolism within the past 10 years. Subjective Date of service: 12/22/20 Interval history: Patient is comfortable, no cardiac complaints, looks and feels better. She is on oral anticoagulation with Eliquis for acute pulmonary embolism on presentation. Objective Vital Signs Temp Pulse Resp BP BP Pulse Ox 12/22/20 10:00 96 H 12/22/20 08:59 98.0 F 103 H 18 153/86 98 12/22/20 04:52 97.5 F L 18 122/72 12/22/20 04:00 99 12/21/20 20:00 87 18 111/56 100 12/21/20 14:40 141/90 12/21/20 12:00 84 - Physical Examination General: Other (Severely obese) HEENT: Positive: PERRL Neck: Positive: neck supple Cardiac: Positive: Reg Rate and Rhythm Lungs: Positive: Decreased Breath Sounds Neuro: Positive: Grossly Intact Abdomen: Positive: Soft Skin: Positive: Clear Extremities: Absent: edema - Allied health notes Allied health notes reviewed: nursing
== END 2020-12-22 11:44 | disposition home or self-care (01) | DRG 175 ==
LOC: ED 03:46 → 4A 12:50 → CC1 14:40 → 4A 12-21 11:05
PROVIDERS: ADMIT Internal Medicine; ATTEND Hospitalist
PROC: 02HR33Z Insertion of Infusion Device into Left Pulmonary Artery, Percutaneous Approach (ICD-10-PCS; principal; 2020-12-19)
PROC: 3E06317 Introduction of Other Thrombolytic into Central Artery, Percutaneous Approach (ICD-10-PCS; 2020-12-19)
PROC: 02HQ33Z Insertion of Infusion Device into Right Pulmonary Artery, Percutaneous Approach (ICD-10-PCS; 2020-12-19)
PROC: 02PY33Z Removal of Infusion Device from Great Vessel, Percutaneous Approach (ICD-10-PCS; 2020-12-20)
PROC: B31T1ZZ Fluoroscopy of Left Pulmonary Artery using Low Osmolar Contrast (ICD-10-PCS; 2020-12-20)
PROC: B31S1ZZ Fluoroscopy of Right Pulmonary Artery using Low Osmolar Contrast (ICD-10-PCS; 2020-12-20)
DX: I26.92 Saddle embolus of pulmonary artery without acute cor pulmonale (principal); J96.01 Acute respiratory failure with hypoxia; I82.401 Acute embolism and thrombosis of unspecified deep veins of right lower extremity; Z68.43 Body mass index [BMI] 50.0-59.9, adult; E66.2 Morbid (severe) obesity with alveolar hypoventilation; I27.20 Pulmonary hypertension, unspecified; I11.0 Hypertensive heart disease with heart failure; R79.89 Other specified abnormal findings of blood chemistry; F41.1 Generalized anxiety disorder; I50.811 Acute right heart failure; G43.909 Migraine, unspecified, not intractable, without status migrainosus; Z82.49 Family history of ischemic heart disease and other diseases of the circulatory system; Z88.8 Allergy status to other drugs, medicaments and biological substances; Z79.899 Other long term (current) drug therapy
CPT/HCPCS: 36415; 37211; 37214; 71045; 71275; 80048; 80053; 80061; 81001; 81025; 82550; 82962; 83735; 83880; 84439; 84443; 84484; 85014; 85018; 85025; 85049; 85379; 85384; 85520; 85610; 85730; 93005; 93306; 93970; 94760; 96365; 96366; 96368; 96374; 96375; 99292; G0378; C1757; C1769; C1887; C1894; J1644; J2250; J2270; J2405; J2997; J3010; J7030; J7050; Q9967

== ENCOUNTER 2021-02-26 09:47 | Emergency (ER) | payer OTHER ==
--- NOTE | 2021-02-26 10:02 | Event Note ---
ED Screening Note ED Screening Note: SHARP CP HX PE SOB This initial assessment/diagnostic orders/clinical plan/treatment(s) is/are subject to change based on patients health status, clinical progression and re- assessment by fellow clinical providers in the ED. Further treatment and workup at subsequent clinical providers discretion. Patient/guardian urged not to elope from the ED as their condition may be serious if not clinically assessed and managed. Initial orders include: LABS UA EKG XRAY
[2021-02-26 11:09] LABS: Basophils # (Auto) 0.1 K/mm3 (0.0-0.1); Basophils % (Auto) 0.8 % (0.0-1.8); Eosinophils # (Auto) 0.3 K/mm3 (0.0-0.4); Eosinophils % (Auto) 3.4 % (0.0-4.3); Hematocrit 39.4 % (30.3-42.9); Hemoglobin 13.6 gm/dl (10.1-14.3); Lymphocytes # (Auto) 2.5 K/mm3 (1.2-5.4); Lymphocytes % (Auto) 28.9 % (13.4-35.0); Mean Corpuscular HGB Conc 34 % (30-34); Mean Corpuscular Volume 90 fl (79-97); Monocytes # (Auto) 1.1 K/mm3 (0.0-0.8); Monocytes % (Auto) 12.8 % (0.0-7.3); Platelet Count 306 K/mm3 (140-440); Red Blood Count 4.38 M/mm3 (3.65-5.03); Red Cell Distribution Width 13.6 % (13.2-15.2)
[2021-02-26 12:09] LABS: Alanine Aminotransferase 18 units/L (7-56); Blood Urea Nitrogen 10 mg/dL (7-17); Calcium 8.6 mg/dL (8.4-10.2); Hemolysis Index 13
[2021-02-26 12:15] LABS: BUN/Creatinine Ratio 17
--- NOTE | 2021-02-26 12:23 | XRay Report ---
CHEST 2 VIEWS, 02/26/2021 INDICATION: Chest pain COMPARISON: Chest radiograph, 12/19/2020 FINDINGS: Support devices: None. Heart: The cardiac silhouette is normal in size. Lungs/pleura: The lungs are clear of focal airspace disease or significant pleural effusion. Additional findings: No significant acute abnormality. IMPRESSION: 1. No evidence of acute cardiopulmonary process. Signer Name: Mikki Granados MD Signed: 02/26/2021 12:01 PM Workstation Name: [id number]
[2021-02-26 21:13] LABS: Bilirubin,Urine NEG (Negative); Blood,Urine NEG (Negative); Color,Urine Straw (Yellow); Protein,Urine <15 mg/dL mg/dL (Negative); Urobilinogen,Urine < 2.0 mg/dL (<2.0)
--- NOTE | 2021-02-26 21:15 | Emergency Department Report ---
ED General Adult HPI - General Chief complaint: Dyspnea/Respdistress Stated complaint: SOB/CHEST/RIB PAIN X2 DAYS Time Seen by Provider: 02/26/21 10:02 Source: patient Mode of arrival: Ambulatory Limitations: No Limitations - History of Present Illness Initial comments: Patient is a 40-year-old female with history of DVT and PE. Who presents for chest pain or shortness of breath x3 days. Patient is followed by pulmonology Dr. Morton and has follow-up appointment however patient states she was advised to present to ED to rule out DVT versus PE. Patient denies cough, denies fever denies chills denies nausea vomiting. Pain is described at 4/10 radiating to the right flank and 4/10 right posterior knee pain. Patient is currently on Eliquis as prophylaxis. Patient states pain is exacerbated by activity and movement. Pain is relieved by offloading and rest. Patient denies fall injury or trauma. She denies pain at this time, denies shortness of breath at this time, there are no other exacerbating or relieving factors. - Related Data Home Medications Medication Instructions Recorded Confirmed Last Taken propranoloL [Inderal] 40 mg PO BID 12/19/20 12/19/20 Unknown Previous Rx's Medication Instructions Recorded Last Taken Type Apixaban [Eliquis starter pack] 5 mg PO BID #1 tab.ds.pk 12/21/20 Unknown Rx Apixaban [Eliquis] 5 mg PO BID #60 tablet 12/21/20 Unknown Rx HYDROcodone/APAP 7.5-325 [[place] 1 each PO Q6HR PRN #30 tablet 12/21/20 Unknown Rx 7.5/325] Diclofenac [[place] Alaniz] 75 mg PO TID PRN #30 tablet 02/26/21 Unknown Rx Menthol/Camphor [[place] Dexter 1 applicatio TP Q6H PRN #1 tube 02/26/21 Unknown Rx Ointment] Allergies Allergy/AdvReac Type Severity Reaction Status Date / Time sulfamethoxazole Allergy Itching Verified 12/19/20 04:19 [From Bactrim] trimethoprim [From Bactrim] Allergy Itching Verified 12/19/20 04:19 ED Review of Systems ROS: Stated complaint: SOB/CHEST/RIB PAIN X2 DAYS Other details as noted in HPI Constitutional: denies: chills, fever Eyes: denies: eye pain, eye discharge, vision change ENT: denies: ear pain, throat pain Respiratory: denies: cough, shortness of breath, wheezing Cardiovascular: as per HPI, chest pain. denies: palpitations, syncope Endocrine: no symptoms reported Gastrointestinal: denies: abdominal pain, nausea, vomiting, diarrhea Genitourinary: denies: urgency, dysuria, discharge Musculoskeletal: back pain (right flank) Skin: denies: rash, lesions Neurological: denies: headache, weakness, paresthesias Psychiatric: anxiety Hematological/Lymphatic: denies: easy bleeding, easy bruising ED Past Medical Hx - Past Medical History Hx Headaches / Migraines: Yes Hx Kidney Stones: Yes Hx Psychiatric Treatment: Yes (Panic Attacks.) Additional medical history: Pulmonary Embolism - Surgical History Past Surgical History?: Yes Additional Surgical History: Removal of [place] Filter. - Social History Smoking Status: Never Smoker - Medications Home Medications: Home Medications Medication Instructions Recorded Confirmed Last Taken Type propranoloL [Inderal] 40 mg PO BID 12/19/20 12/19/20 Unknown History Apixaban [Eliquis starter pack] 5 mg PO BID #1 tab.ds.pk 12/21/20 Unknown Rx Apixaban [Eliquis] 5 mg PO BID #60 tablet 12/21/20 Unknown Rx HYDROcodone/APAP 7.5-325 [[place] 1 each PO Q6HR PRN #30 tablet 12/21/20 Unknown Rx 7.5/325] Diclofenac Dr [Voltaren Dr] 75 mg PO TID PRN #30 tablet 02/26/21 Unknown Rx Menthol/Camphor [[place] Dexter 1 applicatio TP Q6H PRN #1 tube 02/26/21 Unknown Rx Ointment] ED Physical Exam - General Limitations: No Limitations General appearance: alert, in no apparent distress - Head Head exam: Present: atraumatic, normocephalic - Eye Eye exam: Present: normal appearance, EOMI Pupils: Present: normal accommodation - ENT ENT exam: Present: mucous membranes moist - Neck Neck exam: Present: normal inspection, full ROM. Absent: tenderness - Respiratory Respiratory exam: Present: normal lung sounds bilaterally, chest wall tenderness (anterior chest wall ). Absent: respiratory distress, wheezes, rales, rhonchi, stridor - Cardiovascular Cardiovascular Exam: Present: regular rate, normal rhythm, normal heart sounds. Absent: systolic murmur, diastolic murmur, rubs, gallop - GI/Abdominal GI/Abdominal exam: Present: soft, normal bowel sounds. Absent: distended, tenderness, guarding, rebound, rigid, bruit, hernia - Rectal Rectal exam: Present: deferred - Extremities Exam Extremities exam: Present: normal inspection, full ROM, normal capillary refill. Absent: tenderness, pedal edema, calf tenderness - Expanded Lower Extremity Exam Right Lower Leg exam: Present: full ROM. Absent: tenderness, swelling, erythema, palpable cord, Yoni's sign Neuro vascular tendon exam: Absent: pulse deficit, motor deficit Gait: Positive: observed and normal - Back Exam Back exam: Present: full ROM, CVA tenderness (R) - Neurological Exam Neurological exam: Present: alert, oriented X3, CN II-XII intact, normal gait, reflexes normal - Psychiatric Psychiatric exam: Present: normal affect, normal mood - Skin Skin exam: Present: warm, dry, intact, normal color. Absent: rash ED Course Vital Signs 02/26/21 02/26/21 10:02 19:39 Temperature 98.5 F 98.1 F Pulse Rate 72 73 Respiratory 20 18 Rate Blood Pressure 135/65 167/108 O2 Sat by Pulse 99 98 Oximetry ED Medical Decision Making - Lab Data Result diagrams: 02/26/21 10:52 02/26/21 10:52 Labs 02/26/21 02/26/21 02/26/21 10:52 10:52 10:52 WBC 8.6 RBC 4.38 Hgb 13.6 Hct 39.4 MCV 90 MCH 31 MCHC 34 RDW 13.6 Plt Count 306 Lymph % (Auto) 28.9 [place] % (Auto) 12.8 H Eos % (Auto) 3.4 Baso % (Auto) 0.8 Lymph # (Auto) 2.5 [place] # (Auto) 1.1 H Eos # (Auto) 0.3 Baso # (Auto) 0.1 Seg Neutrophils % 54.1 Seg Neutrophils # 4.6 PT 13.0 INR 1.00 APTT 26.0 D-Dimer 153.14 Sodium 139 Potassium 4.1 Chloride 105.8 Carbon Dioxide 25 Anion Gap 12 BUN 10 Creatinine 0.6 Estimated GFR > 60 BUN/Creatinine Ratio 17 Glucose 96 Calcium 8.6 Total Bilirubin 0.20 AST 11 ALT 18 Alkaline Phosphatase 86 Troponin T < 0.010 Total Protein 6.7 Albumin 4.0 Albumin/Globulin Ratio 1.5 HCG, Qual Urine Bilirubin Urine RBC (Auto) U Epithel Cells (Auto) 02/26/21 02/26/21 10:52 Unknown WBC RBC Hgb Hct MCV MCH MCHC RDW Plt Count Lymph % (Auto) [place] % (Auto) Eos % (Auto) Baso % (Auto) Lymph # (Auto) [place] # (Auto) Eos # (Auto) Baso # (Auto) Seg Neutrophils % Seg Neutrophils # PT INR APTT D-Dimer Sodium Potassium Chloride Carbon Dioxide Anion Gap BUN Creatinine Estimated GFR BUN/Creatinine Ratio Glucose Calcium Total Bilirubin AST ALT Alkaline Phosphatase Troponin T Total Protein Albumin Albumin/Globulin Ratio HCG, Qual Negative Urine Bilirubin Neg Urine RBC (Auto) 2.0 U Epithel Cells (Auto) 1.0 - EKG Data EKG shows normal: sinus rhythm, axis, intervals, QRS complexes, ST-T waves Rate: normal - EKG Data When compared to previous EKG there are: previous EKG unavailable Interpretation: normal EKG (NSR NO ST Elevated IN, interp by ed attending. ) - Radiology Data Radiology results: report reviewed, image reviewed Ordering Physician: MIRTHA JARRELL Date of Service: 02/26/21 Procedure(s): XR chest routine 2V Accession Number(s): [id number] cc: MIRTHA JARRELL Fluoro Time In Minutes: CHEST 2 VIEWS, 02/26/2021 INDICATION: Chest pain COMPARISON: Chest radiograph, 12/19/2020 FINDINGS: Support devices: None. Heart: The cardiac silhouette is normal in size. Lungs/pleura: The lungs are clear of focal airspace disease or significant pleural effusion. Additional findings: No significant acute abnormality. IMPRESSION: 1. No evidence of acute cardiopulmonary process. Signer Name: Mikki Granados MD Signed: 02/26/2021 12:01 PM Workstation Name: [id number] Transcribed By: ZARA Dictated By: Mikki Granados MD Electronically Authenticated By: Mikki Granados MD Signed Date/Time: 02/26/21 1201 DD/ 1200 TD/TT: - Medical Decision Making EKG normal sinus rhythm no ST elevated IN, chest x-ray is normal no infiltrates no opacities, D-dimer is negative, [place] and PERC PE is negative. Patient is currently on Eliquis. Patient has good pulmonary follow-up patient will see Dr. Morton in 2 to 3 days. Patient will return to ED should symptoms worsen. Patient has ambulated in ED from room to the bathroom and back to her room without increased shortness of breath, there is no wheezing, stridor, or re spiratory distress. Patient is alert oriented x3 she is ambulatory with steady gait she is tolerating p.o. intake without symptoms. Heart score is 0. Patient will be DC'd home at this time in stable condition Critical care attestation.: If time is entered above; I have spent that time in minutes in the direct care of this critically ill patient, excluding procedure time. ED Disposition Clinical Impression: Shortness of breath Chest pain Qualifiers: Chest pain type: unspecified Qualified Code(s): R07.9 - Chest pain, unspecified Disposition: DC-01 TO HOME OR SELFCARE Is pt being admited?: No Does the pt Need Aspirin: No Condition: Stable Instructions: Nonspecific Chest Pain, Adult Additional Instructions: follow up with Dr. Morton in 1-2 days , return to emergency if symptoms worsen. Prescriptions: Menthol/Camphor [[place] Dexter Ointment] 1 applicatio TP Q6H PRN #1 tube PRN Reason: back pain Diclofenac [[place] Alaniz] 75 mg PO TID PRN #30 tablet PRN Reason: pain Referrals: EFREN MORTON MD [Primary Care Provider] - 3-5 Days Forms: Work/School Release Form(ED) Time of Disposition: 22:40
[2021-02-27 04:05] VITALS: BP 139/70
--- NOTE | 2021-02-27 17:13 | Electrocardiograph Report ---
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
== END 2021-02-26 22:50 | disposition home or self-care (01) ==
LOC: ED 09:47
DX: R06.02 Shortness of breath (principal); R07.89 Other chest pain; N20.0 Calculus of kidney; Z79.899 Other long term (current) drug therapy
CPT/HCPCS: 36415; 71046; 80053; 81001; 84484; 84703; 85025; 85379; 85610; 85730; 93005